=== PATIENT | male | born 1945 | race Caucasian/White ===

== ENCOUNTER → 2016-11-03 | Outpatient (CLI) | payer MEDICARE ==
[~2016-11-03] MED LIST: E-Z-GAS II EFFERVESCENT PACKET (SODIUM BICARB./CITRIC ACID/SIMETHICONE) As Ordered ONE; E-Z-HD 98% w/w 340GM SUSP BTL As Ordered ONE; E-Z-PAQUE 96% w/w SUSP 176GM BTL As Ordered ONE; LASI40TA PO; LOSA100T36 PO; METO50TA2 PO; MULTTAB4 PO; SIMV40TA2 PO; TAMS0.4C PO; TYLE325T5 PO
--- NOTE | 2016-11-03 17:42 | REP ---
UPPER GI, AIR CONTRAST: The procedure was performed under the direct supervision of Dr. Leonardo. The images were reviewed with Dr. Leonardo. The principal consulting engineer film shows no organomegaly or pathological masses. The intestinal gas pattern is nonspecific. Liquid barium and gas-producing granules were given in the erect position as well as liquid barium in the prone oblique position in order to perform a double contrast upper GI examination. The oral and pharyngeal stages of deglutition are unremarkable. During esophageal transport, there are tertiary waves demonstrated. There is no esophagitis, stricture or mucosal ring. There is a fixed hiatal hernia present. There is gastroesophageal reflux demonstrated to above the level of the zhang. Within the fundus of the stomach there is an irregular ulcer. This may represent an ulcerated mass. Recommend endoscopy for further evaluation. The remainder of the stomach is unremarkable. The duodenal leach are normally outlined. The mucosal folds are smooth and regular. There is no duodenitis, pancreatitis, peptic ulcer disease or neoplasm. There are multiple diverticula seen in the duodenum and jejunum. IMPRESSION: 1. In the fundus of the stomach, there is an irregular ulcer which may represent an ulcerated mass. Recommend endoscopy for further evaluation. 2. Tertiary waves. 3. There is a fixed hiatal hernia present. There is gastroesophageal reflux demonstrated to above the level of the zhang. 4. There are multiple diverticula seen in the duodenum and jejunum. 3 minutes and 5 seconds of fluoroscopy time was utilized for this procedure. Reviewed by SOILA Contreras 11/04/2016 05:15 PEdited and Signed by Ulisses Leonardo MD 11/04/2016 05:21 P
== END ==
LOC: M RAD 08:47
PROVIDERS: ATTEND Family Medicine
DX: K92.1 Melena (principal); K25.9 Gastric ulcer, unspecified as acute or chronic, without hemorrhage or perforation; K44.9 Diaphragmatic hernia without obstruction or gangrene; K57.30 Diverticulosis of large intestine without perforation or abscess without bleeding

== ENCOUNTER → 2017-01-12 | Outpatient (CLI) | payer MEDICARE ==
[~2017-01-12] MED LIST changes: -E-Z-GAS II EFFERVESCENT PACKET (SODIUM BICARB./CITRIC ACID/SIMETHICONE) As Ordered ONE; -E-Z-HD 98% w/w 340GM SUSP BTL As Ordered ONE; -E-Z-PAQUE 96% w/w SUSP 176GM BTL As Ordered ONE; +FLOM5CAP PO; +GLYB25TA PO; +LOSA50TA20 PO; +METO-346 PO; +METO50TA7 PO; +OMEP20CA3 PO; +TYLE500T78 PO
[2017-01-12 14:56] LABS: BASO # 0.1 K/mm3 (0.0-0.2); BASO % 0.9 % (0.0-1.0); EOS # 0.1 K/mm3 (0.0-0.50); EOS % 0.9 % (0.0-3.0); LARGE UNSTAINED CELL # 0.1 K/mm3 (0.0-0.4); LARGE UNSTAINED CELL % 1.1 % (0.0-4.0); LYMPH # 1.7 K/mm3 (1.5-4.5); LYMPH % 15.5 % (24.0-44.0); MEAN CORPUSCULAR HEMOGLOBIN 25.9 pg (27.0-33.0); MEAN CORPUSCULAR VOLUME 80.7 fl (80.0-96.0); MONO % 8.7 % (0.0-5.0); NEUTROPHILS # 8.1 K/mm3 (1.8-7.7); NEUTROPHILS % 72.9 % (36.0-66.0); PLATELET COUNT, AUTOMATED 232 k/mm3 (150-450); WHITE BLOOD COUNT 11.1 K/mm3 (4.0-10.0)
[2017-01-16 11:28] LABS: CARCINOEMBRYONIC ANTIGEN 47.1 NG/ML (<2.5)
== END ==
LOC: M LAB 14:04
PROVIDERS: ATTEND Internal Medicine Gastroenterology
DX: R93.3 Abnormal findings on diagnostic imaging of other parts of digestive tract (principal); R63.4 Abnormal weight loss; K25.9 Gastric ulcer, unspecified as acute or chronic, without hemorrhage or perforation

== ENCOUNTER → 2017-01-14 | Outpatient (CLI) | payer MEDICARE ==
[~2017-01-14] MED LIST changes: +GASTROGRAFIN SOLUTION 30ML (Q9963) As Ordered ONE; +ISOVUE-370 76% 100ML VIAL (Q9967) As Ordered ONE
--- NOTE | 2017-01-14 12:17 | REP ---
Clinical: Gastric mass. Technique: Axial contrast enhanced images from the lung bases to the pubic symphysis using oral and 100 ml Isovue 370 intravenous contrast material with precontrast and delayed images of the abdomen as well as coronal and sagittal re-formations. Comparison: 06/22/2015. Findings: Lung bases demonstrate chronic interstitial changes with superimposed basilar atelectasis (right greater than left). Visualized heart and pericardium remains stable. A [id number] paraesophageal gastric hiatal hernia is identified. No obvious gastric mass lesion is appreciated by current CT evaluation although the stomach is partially collapsed and under distended thereby incompletely evaluated. Lymph nodes up to 1.8 cm adjacent to the cardia at the gastroesophageal junction are identified. The small large bowel is grossly unremarkable although moderate fecal impaction at the rectum distended to 6.8 cm is noted. Two vague liver lesions are identified measuring 1.5 cm in the right lobe and 2 cm in the left lobe which cannot be further characterized by current examination. Spleen, pancreas, bilateral adrenal glands are normal. Small amount of layering sludge/gravel in the gallbladder without evidence for acute cholecystitis. Kidneys demonstrate chronic renovascular calcifications as well as possible punctate nonobstructing nephroliths. Pelvis demonstrates collapsed bladder and age appropriate prostate/seminal vesicles. No ascites. No free air. No retroperitoneal adenopathy. Atherosclerotic changes of the aorta and vasculature noted without aneurysm. Musculoskeletal structures demonstrate age-related degenerative change without focal osseous abnormality. Impression: 1. Large paraesophageal gastric hiatal hernia and limited evaluation of the stomach due to under distension by CT. Perigastric lymph nodes as described above measure up to 18 mm. 2. Two subtle vague hypodense liver lesions cannot be further characterized and are not definitively identified on prior noncontrast examinations. 3. Gallbladder sludge/gravel. 4. Nonobstructing renal calculi. 5. Further chronic changes as described above. Signed by Da Benavides MD 01/14/2017 12:09 P
--- NOTE | 2017-01-14 12:25 | REP ---
Clinical: Gastric mass. Technique: Axial contrast enhanced images from the thoracic inlet to the upper abdomen using 100 ml Isovue 370 intravenous contrast material with multiplanar re-formations. Comparison: None. Findings: The thyroid gland is markedly enlarged and heterogeneous with nodules, cysts and calcifications and adjacent separate thyroid tissue versus mass anterior and inferior to the isthmus of the thyroid gland is identified which is similar in appearance of the remainder of the thyroid gland and may represent large nodule. Correlation and follow up is required. Underlying pathology including neoplasm cannot be excluded. Mediastinal and hilar adenopathy is appreciated with lymph nodes measuring up to 17 mm. The lung patel demonstrate diffuse chronic interstitial changes along with few scattered nodules and posterior right upper lobe subpleural nodule measuring 12 mm (image 39). Bibasilar atelectasis (right greater than left) is also appreciated. A [id number]-[id number]-buupx paraesophageal gastric hiatal hernia is identified with some element of irregularity and few adjacent perigastric lymph nodes measuring up to approximately 16 mm. No pleural effusion. No pneumothorax. Surrounding musculoskeletal structures are intact without focal osseous abnormality. Impression: 1. Significantly enlarged heterogeneous thyroid gland with presumed independent thyroid nodule anterior and inferior to the isthmus all of which extends to the thoracic inlet and superior mediastinum surrounding the trachea. Correlation and follow-up is recommended as underlying pathology including neoplasm cannot be excluded. 2. Mediastinal adenopathy with few scattered nodules and solitary larger nodule measuring 12 mm in the subpleural right upper lobe requires further evaluation. As malignancy and metastatic disease are of concern. 3. Irregular appearance to the paraesophageal gastric hiatal hernia along with adjacent perigastric lymph nodes likely reflect the given history of gastric mass and malignancy cannot be excluded. Signed by Da Benavides MD 01/14/2017 12:16 P
== END ==
LOC: M RAD 09:22
PROVIDERS: ATTEND Internal Medicine Gastroenterology
DX: C16.9 Malignant neoplasm of stomach, unspecified (principal); R59.9 Enlarged lymph nodes, unspecified; K44.9 Diaphragmatic hernia without obstruction or gangrene; I10 Essential (primary) hypertension; E11.9 Type 2 diabetes mellitus without complications; E78.00 Pure hypercholesterolemia, unspecified; I50.9 Heart failure, unspecified; K76.89 Other specified diseases of liver; N20.0 Calculus of kidney; K82.9 Disease of gallbladder, unspecified; R91.1 Solitary pulmonary nodule; E07.9 Disorder of thyroid, unspecified; R63.4 Abnormal weight loss; K25.9 Gastric ulcer, unspecified as acute or chronic, without hemorrhage or perforation; F17.210 Nicotine dependence, cigarettes, uncomplicated; Z79.899 Other long term (current) drug therapy
CPT/HCPCS: 36415; 43239; 71260; 74178; 82565; 84520; 88305; Q9963; Q9967

== ENCOUNTER → 2017-01-14 | Outpatient (CLI) | payer MEDICARE ==
[~2017-01-14] VITALS: Ht 175.3 cm; Wt 122.0 kg
[~2017-01-14] MED LIST changes: -GASTROGRAFIN SOLUTION 30ML (Q9963) As Ordered ONE; -ISOVUE-370 76% 100ML VIAL (Q9967) As Ordered ONE; +LIDOCAINE 2% INJ 100 MG/5 ML SDV (FOR ANES.) As Ordered ONE; +NS 1,000 ML IV SCH; +PROPOFOL 200 MG/20 ML VIAL As Ordered ONE
--- NOTE | 2017-01-14 07:59 | ROOR ---
Patient Name: Arpit Caicedo Procedure Date: 01/14/2017 7:27 AM Date of : 1945 Age: 71 Room: [facility] Gender: Male Note Status: Finalized Procedure: Upper Endoscopy + Biopsies Indications: Epigastric abdominal pain, Abnormal UGI series, Weight loss Providers: Rich Sandy MD Referring MD: DIANA SARAH MD Requesting Provider: Medicines: Monitored Anesthesia Care Complications: No immediate complications. Procedure: Pre-Anesthesia Assessment: - The heart rate, respiratory rate, oxygen saturations, blood pressure, adequacy of pulmonary ventilation, and response to care were monitored throughout the procedure. The Endoscope was introduced through the mouth, and advanced to the second part of duodenum. The upper GI endoscopy was accomplished without difficulty. The patient tolerated the procedure well. Findings: The Z-line was regular and was found 40 cm from the incisors. A medium-sized hiatal hernia was present. A large, ulcerated, non-circumferential mass with no bleeding and no stigmata of recent bleeding was found in the cardia and in the gastric fundus. Biopsies were taken with a cold forceps for histology. The exam was otherwise without abnormality. The exam of the duodenum was otherwise normal. Impression: - Z-line regular, 40 cm from the incisors. - Medium-sized hiatal hernia. - Rule out malignancy, gastric tumor in the cardia and in the gastric fundus. Biopsied. - The examination was otherwise normal. Recommendation: - Await pathology results. - Discharge patient to home. - Continue present medications. - Await pathology results. - Telephone GI clinic for pathology results in 1 week. - Check Portal Online for Path [email or web address] - Refer to a surgeon. - Perform CT scan (computed tomography) of the abdomen with contrast. - Perform CT scan (computed tomography) of the chest with contrast. - Perform CT scan (computed tomography) of the pelvis with contrast. - The findings and recommendations were discussed with the patient's family. Rich Sandy MD Rich Sandy MD 01/14/2017 7:58:48 AM This report has been signed electronically. Number of Addenda: 0 Note Initiated On: 01/14/2017 7:27 AM Estimated Blood Loss: Estimated blood loss: none.
[2017-01-14 08:25] VITALS: BP 119/55
[2017-01-14 09:34] LABS: BLOOD UREA NITROGEN 15 MG/DL (7-18); CREATININE FOR GFR 0.76 MG/DL (0.70-1.30); GLOMERULAR FILTRATION RATE > 60.0 (>42)
== END ==
LOC: M OPP 06:57
PROVIDERS: ATTEND Internal Medicine Gastroenterology
DX: C16.9 Malignant neoplasm of stomach, unspecified (principal)

== ENCOUNTER → 2017-01-23 | Outpatient (CLI) | payer MEDICARE ==
[~2017-01-23] MED LIST changes: -LIDOCAINE 2% INJ 100 MG/5 ML SDV (FOR ANES.) As Ordered ONE; -NS 1,000 ML IV SCH; -PROPOFOL 200 MG/20 ML VIAL As Ordered ONE
[2017-01-23 13:01] LABS: INR 1.05
[2017-01-23 13:25] LABS: ALBUMIN 2.8 GM/DL (3.2-5.2); ALBUMIN/GLOBULIN RATIO 0.72 (1.00-1.93); ALKALINE PHOSPHATASE 106 U/L (45-117); ALT/SGPT 16 U/L (12-78); ANION GAP 6 MEQ/L (8-16); AST/SGOT 11 U/L (15-37); BILIRUBIN,TOTAL 0.6 MG/DL (0.2-1.0); BLOOD UREA NITROGEN 14 MG/DL (7-18); CALCIUM LEVEL 9.2 MG/DL (8.8-10.2); CARBON DIOXIDE LEVEL 25 MEQ/L (21-32); CARCINOEMBRYONIC ANTIGEN 67.8 NG/ML (<2.5); CHLORIDE LEVEL 108 MEQ/L (98-107); CREATININE FOR GFR 0.69 MG/DL (0.70-1.30); GLOMERULAR FILTRATION RATE > 60.0 (>42); GLUCOSE, FASTING 134 MG/DL (83-110); SODIUM LEVEL 139 MEQ/L (136-145); TOTAL PROTEIN 6.7 GM/DL (6.4-8.2)
== END ==
LOC: M LAB 11:37
PROVIDERS: ATTEND Surgery
DX: C16.0 Malignant neoplasm of cardia (principal)

== ENCOUNTER → 2017-02-03 | Outpatient (CLI) | payer MEDICARE | LOC: M PLARAD 10:26 | PROVIDERS: ATTEND Surgery | DX: D38.3 Neoplasm of uncertain behavior of mediastinum (principal); D44.0 Neoplasm of uncertain behavior of thyroid gland; C16.0 Malignant neoplasm of cardia | CPT/HCPCS: 78815; A9552 ==

== ENCOUNTER → 2017-02-04 | Outpatient (CLI) | payer MEDICARE ==
--- NOTE | 2017-02-05 08:27 | REP ---
Whole body PET CT scan: Whole body PET CT scan is performed from skull base to the upper thighs. Comparison is the CT of the chest, abdomen and pelvis dated 01/14/2017. Neck and supraclavicular areas: There are no hypermetabolic foci. The thyroid is markedly enlarged as on the comparison CT and there is a mass anterior to the thyroid as on the comparison CT. There are foci of faintly visible non hypermetabolic uptake in the thyroid and the mass anterior to the thyroid. No hypermetabolic foci are identified. Chest: There is a subcarinal soft tissue mass measuring approximately 2.9 cm demonstrating hypermetabolic uptake with a maximal standard uptake value of 11.4. Just inferior to this, anterior to the thoracic aorta slightly to the right of midline is a borderline enlarged lymph node demonstrating hypermetabolic uptake with a maximal standard uptake value of 4.8. Just inferior to this there is a large fixed hiatal hernia. In the superior wall of the hiatal hernia is a large multifocal hypermetabolic focus measuring 6 cm in diameter and demonstrating a standard uptake value maximally of 13.1. Abdomen, pelvis and upper thighs: There is hypermetabolic uptake in an enlarged node interposed between the stomach and liver with a standard uptake value of 11.3. There is hypermetabolic uptake in a elizabeth hepatis borderline enlarged node with a standard uptake maximal value of 7.0. There is a hypermetabolic focus posteriorly in the medial segment of the hepatic left lobe measuring 3.4 cm in diameter with a maximal standard uptake value of 12.5. There is a hypermetabolic focus laterally in the right lobe of the liver with a standard uptake value of 7.9. There are two hypermetabolic foci inferiorly in the right lobe of the liver adjacent to one another with maximal standard uptake value of 7.7. There is a small hypermetabolic focus posterior laterally in the right lobe of the liver with a standard uptake value of 5.5. There is a small hypermetabolic focus posteriorly in the right lobe of the liver inferiorly with a standard uptake value of 4.6. There is a hypermetabolic focus interposed between the portal vein and abdominal vena cava, likely a noted, with a maximal standard uptake value of 11.3. There are is a hypermetabolic focus in the mid ascending colon with a standard uptake value of 22.5. There is a second hypermetabolic focus in the ascending colon at the hepatic flexure with a standard uptake value of 7.6. There is a hypermetabolic focus in the wall of a small bowel loop in the mid pelvis with a standard uptake value of 4.3. There is a hypermetabolic focus extending posteriorly from the inferior wall of the bladder into the rectosigmoid colon wall with a standard uptake value of 12.0. Just inferior to this there is hypermetabolic uptake in the anus with a standard uptake value of 6.2. Impression: There are no hypermetabolic foci in the neck versus clavicular areas. The thyroid is enlarged. There is a mass anterior to the thyroid. These structures demonstrate non hypermetabolic uptake. There is hypermetabolic uptake in the wall of the fixed hiatal hernia. Just superior to the hiatal hernia. There is a mediastinal subcarinal soft tissue mass demonstrating hypermetabolic uptake. And a mediastinal node anterior to the aorta demonstrating hypermetabolic uptake. There are multiple hepatic foci compatible with hepatic metastases. There is uptake in several mesenteric nodes. There are multiple foci in the colon as described. There is a focus in a single small bowel loop in the pelvis. The study is performed with 10 mCi of F 18 FDG. Signed by Ulisses Enriquez MD 02/05/2017 08:19 A
== END ==
LOC: M PLARAD 11:22
PROVIDERS: ATTEND Surgery
DX: C16.9 Malignant neoplasm of stomach, unspecified (principal)
CPT/HCPCS: 78815; A9552

== ENCOUNTER → 2017-02-16 | Outpatient (REF) | payer MEDICARE ==
[2017-02-16 17:28] LABS: INR 1.06
[2017-02-16 19:42] LABS: THYROXINE (T4) 9.1 UG/DL (4.5-12.0)
[2017-02-17 09:12] LABS: CARCINOEMBRYONIC ANTIGEN 183.2 NG/ML (<2.5)
== END ==
LOC: M LAB REF 16:48
PROVIDERS: ATTEND Internal Medicine Medical Oncology
DX: C77.1 Secondary and unspecified malignant neoplasm of intrathoracic lymph nodes (principal); C78.7 Secondary malignant neoplasm of liver and intrahepatic bile duct; C16.0 Malignant neoplasm of cardia; Z79.899 Other long term (current) drug therapy

== ENCOUNTER → 2017-02-20 | Outpatient (CLI) | payer MEDICARE ==
--- NOTE | 2017-02-20 11:03 | REP ---
THYROID ULTRASOUND: Real-time sonographic evaluation of the thyroid performed. Both lobes are significantly enlarged and diffusely heterogeneous in echotexture. Right lobe measures 7.2 x 3.3 x 3.8 cm and left lobe 7.1 x 2.5 x 3.2 cm. No discrete cystic or solid nodule is seen bilaterally. IMPRESSION: Thyromegaly with diffuse heterogeneous echotexture but no focal mass. Signed by Ulisses Leonardo MD 02/20/2017 05:07 P
--- NOTE | 2017-02-20 14:39 | REP ---
WHOLE BODY BONE SCAN: Following the intravenous administration of 22 mCi of technetium-99m MDP, patient's whole body is imaged in the anterior and posterior projections, with additional oblique images of the thoracic and pelvic regions performed as well as lateral views of the calvarium. There is homogenous radiotracer distribution throughout the axial and appendicular skeleton with no compelling scintigraphic evidence of osseous metastases. Renal and bladder activity are seen. IMPRESSION: No compelling scintigraphic evidence of osseous metastasis. Signed by Ulisses Leonardo MD 02/20/2017 05:12 P
== END ==
LOC: M RAD 08:38
PROVIDERS: ATTEND Nurse Practitioner Family
DX: C16.9 Malignant neoplasm of stomach, unspecified (principal); E01.0 Iodine-deficiency related diffuse (endemic) goiter
CPT/HCPCS: 76536; 78306; A9503

== ENCOUNTER → 2017-03-02 | Outpatient (CLI) | payer MEDICARE ==
--- NOTE | 2017-03-02 11:30 | REP ---
Chest two views HISTORY: Stomach neoplasm Comparison: 01/23/2016 An increase in interstitial markings is present in the lungs consistent with chronic interstitial fibrosis. The cardiac silhouette is enlarged. The pulmonary vasculature is normal in appearance. The bony structure is intact. IMPRESSION: 1. Chronic interstitial fibrosis. 2. Cardiomegaly. Signed by Blas Abbasi MD 03/02/2017 11:22 A
== END ==
LOC: M SMT 10:55
PROVIDERS: ATTEND Thoracic Surgery (Cardiothoracic Vascular Surgery)
DX: Z01.811 Encounter for preprocedural respiratory examination (principal); C16.9 Malignant neoplasm of stomach, unspecified; J84.112 Idiopathic pulmonary fibrosis; I51.7 Cardiomegaly

== ENCOUNTER 2017-03-03 09:28 | Day surgery (SDC) | payer MEDICARE ==
[~2017-03-03] VITALS: Ht 167.6 cm; Wt 122.0 kg
[~2017-03-03 09:28] MED LIST changes: +LIDOCAINE 2% INJ 100 MG/5 ML SDV (FOR ANES.) As Ordered ONE; +MIDAZOLAM INJ 2 MG/2 ML VIAL (J2250) As Ordered ONE; +ONDANSETRON 4MG/2ML VIAL (J2405) As Ordered ONE; +PROPOFOL 200 MG/20 ML VIAL As Ordered ONE; -TYLE500T78 PO; +fentaNYL 100 MCG/2 ML INJECTION (J3010) As Ordered ONE
[2017-03-03] MEDS ORDERED: BUPIVACAINE LIPOSOME/PF 1.3% 20 ML VIAL (13.3MG/ML)(EXPAREL) As Ordered ONE (09:55)
[2017-03-03] MEDS ORDERED: HEPARIN SOD (PORCINE) 5000 UNITS/ML VIAL As Ordered ONE (09:55)
[2017-03-03] MEDS ORDERED: LIDOCAINE 1% MDV 20ML VIAL As Ordered ONE (09:55)
[2017-03-03] MEDS ORDERED: TYLE500T78 PO (09:59)
[2017-03-03] MEDS ORDERED: MUPIROCIN 2% OINT 22 GM TUBE TOP ONE (10:00)
[2017-03-03] MEDS ORDERED: LIDOCAINE 2% INJ 100 MG/5 ML SDV (FOR ANES.) As Ordered ONE (14:16)
[2017-03-03] MEDS ORDERED: PROPOFOL 200 MG/20 ML VIAL As Ordered ONE (14:16)
--- NOTE | 2017-03-03 14:53 | REP ---
CHEST X-RAY: TWO VIEWS LIMITED STUDY. HISTORY: Abnormal x-ray. 41 seconds of fluoroscopy time is reported. FINDINGS: A sequence of two last image hold fluoroscopic spot radiographs of the chest document Eazugq-Y-Elqk catheter placement. Signed by Bhavik Ahmadi MD 03/03/2017 03:00 P
[2017-03-03] MEDS ORDERED: FUROSEMIDE 20 MG/2 ML VIAL (J1940) As Ordered ONE (15:06)
[2017-03-03] MEDS ORDERED: LR 1,000 ML IV SCH (15:15)
[2017-03-03] MEDS ORDERED: ACETAMINOPHEN TAB 650MG DOSE (2X325MG) PO PRN (15:15)
[2017-03-03] MEDS ORDERED: PERCOCET 5MG/325MG TAB PO PRN (15:15)
--- NOTE | 2017-03-03 15:38 | REP ---
CHEST, ONE VIEW: HISTORY: Pneumothorax. An increase in interstitial markings is present in the lungs consistent with chronic interstitial fibrosis. Increased density is present in the lower lobes consistent with atelectasis or infiltrates. The cardiac silhouette is enlarged. The pulmonary vasculature is normal in appearance. There is no definite pneumothorax. IMPRESSION: 1. Chronic interstitial fibrosis. 2. Bibasilar atelectasis or infiltrates. 3. Cardiomegaly. Signed by Blas Abbasi MD 03/03/2017 03:42 P
[2017-03-03] MEDS ORDERED: FUROSEMIDE 40 MG/4 ML VIAL (J1940) IV ONE (15:45)
[2017-03-03 17:10] VITALS: BP 119/61
--- NOTE | 2017-03-05 09:09 | RO ---
DATE OF PROCEDURE: 03/03/2017 PREPROCEDURE DIAGNOSIS: Gastric cancer, need for vascular access and chemotherapy. POSTPROCEDURE DIAGNOSIS: same PROCEDURE: Insertion of right subclavian Mmkhhc-S-Lhwd. SURGEON: Dr. Barrett French. GLUE MILL OPERATOR: ANESTHESIA: ESTIMATED BLOOD LOSS: FINDINGS: The left subclavian vein could be found but a wire would not pass. He does have a substernal thyroid and on his chest CT, I thought that his left subclavian vein was not stenosed. Once I could not pass the wire, I went to the right side. The vein was eventually found after multiple sticks on the right side and was eventually wired. The wire would not go down into the vena cava but rather wanted to go through the innominate vein. I settled for that course at that time in the operation. The subclavian fossa had been previously infiltrated with 1% Xylocaine. The proposed port site was infiltrated with Exparel and an incision made. Incision was carried down to the subcutaneous tissue and a subcutaneous pocket was created. Hemostasis was achieved. The wire tract was incised and dilated. A tunnel was created between the port site and the wire site and the catheter. A peel away introducer was then placed and followed with fluoroscopy. The introducer was removed and the catheter was placed with low numbers down. Eventually I had to place it over the guidewire by cutting it a bit shorter than usual at this point in the procedure. It threaded over the guidewire and ran and upon removal of the guidewire, it floated down into the SVC. The peel away introducer was removed through the tunnel which had already been created through which the catheter was pulled after attaching it to the tunneler. He was then properly positioned under fluoroscopic control. The catheter was cut to an appropriate length. Collar was placed and the port was connected to the catheter. Port was secured to the chest wall with two #2-0 silk sutures. After final positioning and making sure that all contours were smooth, the subcutaneous tissue was closed with a running #3-0 locking suture, the skin was closed with running #4-0 Monocryl subcuticular suture. Patient tolerated the procedure well and left the operating room in satisfactory condition. A chest x-ray will be taken in the recovery room. SUSHANT
== END 2017-03-03 17:15 | disposition home or self-care (01) ==
LOC: M SDC 09:28
PROVIDERS: ATTEND Thoracic Surgery (Cardiothoracic Vascular Surgery)
DX: C16.9 Malignant neoplasm of stomach, unspecified (principal); G47.33 Obstructive sleep apnea (adult) (pediatric); R06.00 Dyspnea, unspecified; F17.218 Nicotine dependence, cigarettes, with other nicotine-induced disorders; E04.9 Nontoxic goiter, unspecified; E11.9 Type 2 diabetes mellitus without complications; I10 Essential (primary) hypertension; E78.00 Pure hypercholesterolemia, unspecified; K21.9 Gastro-esophageal reflux disease without esophagitis; R29.898 Other symptoms and signs involving the musculoskeletal system; Z79.899 Other long term (current) drug therapy; Z96.1 Presence of intraocular lens
CPT/HCPCS: 36561; 71010; 76000; C1788; J0690; J1940; J2250; J3010

== ENCOUNTER → 2017-03-09 | Outpatient (REF) | payer MEDICARE ==
[~2017-03-09] MED LIST changes: -LIDOCAINE 2% INJ 100 MG/5 ML SDV (FOR ANES.) As Ordered ONE; -MIDAZOLAM INJ 2 MG/2 ML VIAL (J2250) As Ordered ONE; -ONDANSETRON 4MG/2ML VIAL (J2405) As Ordered ONE; -PROPOFOL 200 MG/20 ML VIAL As Ordered ONE; +TYLE500T78 PO; -fentaNYL 100 MCG/2 ML INJECTION (J3010) As Ordered ONE
[2017-03-10 14:30] LABS: CARCINOEMBRYONIC ANTIGEN 330.9 NG/ML (<2.5)
== END ==
LOC: M LAB REF 14:05
PROVIDERS: ATTEND Internal Medicine Medical Oncology
DX: C16.0 Malignant neoplasm of cardia (principal)

== ENCOUNTER → 2017-03-12 | Outpatient (CLI) | payer MEDICARE ==
--- NOTE | 2017-03-12 10:14 | REP ---
Chest x-ray: Two views. History: Malignant neoplasm. Comparison study: March 03, 2017. Findings: A right-sided Ubwzje-Y-Pwkp catheter is installed with its tip in the expected location of the superior vena cava. Cardiomegaly is observed. There is evidence of a hiatal hernia. There is diffuse interstitial lung disease again noted. Mediastinal widening due to thyroid goiter is again seen. There is no evidence of pneumothorax. Impression: Asspum-T-Pxhq catheter installed on the right. Diffuse interstitial lung disease. Stable mediastinal widening. Hiatal hernia. Signed by Bhavik Ahmadi MD 03/12/2017 02:35 P
== END ==
LOC: M SMT 08:41
PROVIDERS: ATTEND Thoracic Surgery (Cardiothoracic Vascular Surgery)
DX: C16.9 Malignant neoplasm of stomach, unspecified (principal)

== ENCOUNTER → 2017-04-06 | Outpatient (REF) | payer MEDICARE | LOC: M LAB REF 12:38 | PROVIDERS: ATTEND Internal Medicine Medical Oncology | DX: C16.0 Malignant neoplasm of cardia (principal) ==

== ENCOUNTER → 2017-04-10 | Outpatient (CLI) | payer MEDICARE ==
[~2017-04-10] MED LIST changes: +BOOSLIQ PO; +DOCU100C16 PO; +GASTROGRAFIN SOLUTION 30ML (Q9963) As Ordered ONE; +ISOVUE-370 76% 100ML VIAL (Q9967) As Ordered ONE; +METO1TAB87 PO; +PROC10TA PO; +SENN1TAB10 PO; +VITMTA PO; +ZOFR8TAB PO
--- NOTE | 2017-04-10 16:18 | REP ---
CT of the abdomen pelvis without and with IV contrast: Studies correlate with the recent whole body PET scan dated 02/04/[address] scan of 01/14/2017. On the comparison PET scan. There are two hypermetabolic foci in the ascending colon. There is no evidence of colonic obstruction on the CT today, in the ascending colon. No colonic masses are identified by CT today, however, CT is somewhat insensitive. There is no bowel distension or obstruction otherwise. The patient has a known hypermetabolic mass in the hiatal hernia portion of the stomach that is better appreciated on the comparison PET scan and appears to be at the portion of the stomach that traverses the diaphragm. No definite mass is identified in this location on the CT scan today, the PET scan being more sensitive. Multiple hepatic metastases were identified on the comparison PET scan. There are two low density lesion is faintly visible on the CT scan today, one in the left lobe and one peripherally in the right lobe. These correspond foci of hypermetabolic uptake on the PET scan. There are several other hepatic metastases on the PET scan , not visible by CT. On the PET scan there were hypermetabolic nodes in the elizabeth hepatis interposed between the vena cava and aorta. These are faintly visible on the CT scan today. There are small gallbladder calculi layering along the dependent wall of the gallbladder versus porcelain gallbladder. There is a small fat-containing ventral hernia, unchanged from the comparison CT and from the PET scan. The pancreas and spleen are unremarkable. Adrenals and kidneys are unremarkable. Abdominal aorta are unremarkable. Small large bowel loops are unremarkable. There is no ascites. Pelvis: The pelvic bowel loops are unremarkable. There is no ascites or adenopathy. On the comparison PET scan there is a hypermetabolic focus in the sigmoid colon. No mass or obstruction is identified on the CT today. In the distal ascending colon. There is a focal zone of luminal narrowing and mild wall thickening. This was also present on the PET scan. However, the hypermetabolic uptake in the ascending colon is not in this location. There appears to be more proximal in the descending colon. Impression: No evidence of colonic obstruction or bowel obstruction otherwise. The patient has known multiple note hepatic and abdominal hypermetabolic foci, better appreciated on the PET scan then on the CT study today. There is no ascites. No bowel distension or obstruction. Tiny gallbladder calculi layering along the dependent surface of the gallbladder versus porcelain gallbladder. This is unchanged. Small fat-containing ventral hernia, unchanged. Colonoscopy might be considered for further evaluation of the findings in the ascending colon on the prior PET scan. Signed by Ulisses Enriquez MD 04/10/2017 04:10 P
== END ==
LOC: M RAD 11:17
PROVIDERS: ATTEND Internal Medicine Medical Oncology
DX: K56.60 Unspecified intestinal obstruction (principal); C16.9 Malignant neoplasm of stomach, unspecified
CPT/HCPCS: 74178; Q9963; Q9967

== ENCOUNTER → 2017-05-04 | Outpatient (REF) | payer MEDICARE ==
[~2017-05-04] MED LIST changes: -GASTROGRAFIN SOLUTION 30ML (Q9963) As Ordered ONE; -ISOVUE-370 76% 100ML VIAL (Q9967) As Ordered ONE
== END ==
LOC: M LAB REF 10:26
PROVIDERS: ATTEND Internal Medicine Medical Oncology
DX: C16.0 Malignant neoplasm of cardia (principal)

== ENCOUNTER 2017-05-26 10:35 | Inpatient (IN) | payer MEDICARE ==
[~2017-05-26] VITALS: Ht 172.7 cm; Wt 118.9 kg
[~2017-05-26 10:35] MED LIST changes: -BOOSLIQ PO; -DOCU100C16 PO; -K-TA1TAB PO; -MAGN400C2 PO; -METO1TAB87 PO; -NICO21PAT TD; -PROC10TA PO; -SENN1TAB10 PO; -VITMTA PO; -ZOFR8TAB PO
[2017-05-26 11:05] LABS: BASO % 0.5 % (0.0-1.0); EOS % 0.2 % (0.0-3.0); IMMATURE GRANULOCYTE % 2.2 % (0-0); LYMPH % 16.1 % (24.0-44.0); MEAN CORPUSCULAR HEMOGLOBIN 26.5 pg (27.0-33.0); MEAN CORPUSCULAR HGB CONC 29.8 g/dl (32.0-36.5); MEAN CORPUSCULAR VOLUME 88.9 fl (80.0-96.0); MONO # 0.3 10^3/uL (0.0-0.8); MONO % 5.5 % (0.0-5.0); NEUTROPHILS # 4.5 10^3/uL (1.8-7.7); NEUTROPHILS % 75.5 % (36.0-66.0); PLATELET COUNT, AUTOMATED 183 10^3/uL (150-450); RED CELL DISTRIBUTION WIDTH 21.2 % (11.5-14.5)
[2017-05-26 11:16] LABS: INR 1.15
[2017-05-26 11:26] LABS: ANION GAP 5 MEQ/L (8-16); BLOOD UREA NITROGEN 12 MG/DL (7-18); CARBON DIOXIDE LEVEL 28 MEQ/L (21-32); CHLORIDE LEVEL 108 MEQ/L (98-107); CREATININE FOR GFR 0.72 MG/DL (0.70-1.30); GLOMERULAR FILTRATION RATE > 60.0 (>42); GLUCOSE, FASTING 182 MG/DL (83-110); SODIUM LEVEL 141 MEQ/L (136-145)
[2017-05-26 11:27] LABS: CALCIUM LEVEL 8.8 MG/DL (8.8-10.2)
--- NOTE | 2017-05-26 11:28 | REP ---
Clinical: Cough and dyspnea. Comparison: 03/12/2017. Findings: Diffuse increased interstitial markings with indistinct pulmonary vasculature and bibasilar opacities most consistent with pulmonary vascular congestion and interstitial edema including basilar atelectasis and pleural effusions. Cardiomegaly remains stable. Pxduht-C-[id number] identified with tip in the SVC. Skeletal structures are intact. Impression: Findings most compatible with pulmonary vascular congestion and interstitial edema including bibasilar atelectasis and pleural effusions. Signed by Da Benavides MD 05/26/2017 11:19 A
[2017-05-26 11:38] LABS: ALBUMIN 2.4 GM/DL (3.2-5.2); ALBUMIN/GLOBULIN RATIO 0.44 (1.00-1.93); BILIRUBIN,DIRECT 0.3 MG/DL (0.0-0.2); BILIRUBIN,TOTAL 0.7 MG/DL (0.2-1.0); MAGNESIUM LEVEL 1.9 MG/DL (1.8-2.4); TOTAL PROTEIN 7.8 GM/DL (6.4-8.2)
[2017-05-26] MEDS ORDERED: FUROSEMIDE 20 MG/2 ML VIAL (J1940) IV ONE (11:45)
[2017-05-26] MEDS ORDERED: ZOFR8TAB PO (12:35)
[2017-05-26] MEDS ORDERED: SENN1TAB10 PO (12:35)
[2017-05-26] MEDS ORDERED: TYLE500T78 PO (12:35)
[2017-05-26] MEDS ORDERED: DOCU100C16 PO (12:35)
[2017-05-26] MEDS ORDERED: BOOSLIQ PO (12:35)
[2017-05-26] MEDS ORDERED: METO1TAB87 PO (12:35)
[2017-05-26] MEDS ORDERED: VITMTA PO (12:35)
[2017-05-26] MEDS ORDERED: PROC10TA PO (12:35)
[2017-05-26] MEDS ORDERED: GLUCOSE 4 GM CHEW TABLET PO PRN (13:15)
[2017-05-26] MEDS ORDERED: DEXTROSE 50% 50 ML SYRINGE IV PRN (13:15)
[2017-05-26] MEDS ORDERED: GLUCAGON FOR INJ 1 MG VIAL (J1610) SC PRN (13:15)
[2017-05-26] MEDS ORDERED: PROCHLORPERAZINE 5 MG TAB (S0183) PO PRN (13:15)
[2017-05-26] MEDS ORDERED: ONDANSETRON 4 MG TAB (S0181) PO PRN (13:15)
[2017-05-26] MEDS ORDERED: ISOVUE-370 76% 100ML VIAL (Q9967) As Ordered ONE (13:15)
--- NOTE | 2017-05-26 14:08 | REP ---
Clinical: History of malignancy with shortness of breath. Rule out pulmonary embolus. Technique: Axial contrast enhanced images from the thoracic inlet to the upper abdomen using 100 ml Isovue 370 intravenous contrast material with multiplanar MIP re-formations. Comparison: 01/14/2017. Findings: Satisfactory enhancement of the pulmonary vasculature is achieved and no definite filling defects are identified to suggest pulmonary embolus. The thoracic aorta demonstrates atherosclerotic disease without aneurysm or dissection. Cardiomegaly and atherosclerotic changes to the coronary arteries noted. No pericardial effusion is identified. Pulmonary vascular congestion along with moderate lower lobe consolidations/atelectasis and pleural effusions are identified. A noncalcified nodule along the periphery of the right lower lobe measuring approximately 12 mm is essentially unchanged. Smaller scattered nodules obscured by areas of atelectasis/infiltrate and effusion cannot be excluded. Significant mediastinal and hilar (right greater than left) adenopathy is appreciated which is increased in size and quantity as compared to prior examination. Specifically, the prevascular lymph nodes now measure approximately 14 mm and previously measured 10 mm maximal diameter while the left hilar lymph node currently measures 3.3 cm and previously measured 2.5 cm maximal diameter along with prominent paratracheal lymph nodes. The thyroid gland is diffusely heterogeneous and significantly enlarged with areas of parenchymal calcification and fluid, but appears relatively stable in size and overall appearance. Surrounding musculoskeletal structures demonstrate degenerative changes without focal osseous abnormality. Limited evaluation of the upper abdomen again demonstrates a large paraesophageal gastric hiatal hernia with stable adjacent lymph nodes. Impression: 1. No evidence for pulmonary embolus. 2. Cardiomegaly and evidence for pulmonary vascular congestion. 3. Moderate bilateral lower lobe atelectasis/infiltrates and pleural effusions. 12 mm right lower lobe pulmonary nodule remains stable although smaller nodules obscured by acute infiltrates and effusions cannot be excluded. 4. Mildly increased mediastinal and hilar adenopathy. 5. Enlarged heterogeneous multinodular goiter similar to prior examination. 6. Large paraesophageal gastric hiatal hernia similar to prior examination. Signed by Da Benavides MD 05/26/2017 02:00 P
--- NOTE | 2017-05-26 14:15 | HPE ---
DATE OF ADMISSION: 05/26/2017 PRIMARY CARE PROVIDER: Dr. Martinez CHIEF MEDICAL PHYSICIST: Dr. Ordoñez WEIGHT LOSS CONSULTANT: Dr. Diamond ONCOLOGIST: Dr. Reanna Kowalski HOTEL SERVICE SUPERVISOR: Dr. Sandy CHIEF COMPLAINT: Shortness of breath, feeling sensation of warmth. HISTORY OF PRESENT ILLNESS: This is a 71-year-old male patient with underlying history of stage IV gastric cancer, HER2 positive adenocarcinoma with multifocal liver, mediastinum and soft tissue abdominal metastases diagnosed in January 2017, currently on FOLFOX and trastuzumab treatment, and also with underlying medical history of congestive heart failure (CHF), atrial fibrillation, obstructive sleep apnea, umbilical hernia, hypertension, benign prostatic hypertrophy (BPH), nephrolithiasis, gastroesophageal reflux disease (GERD), type 2 diabetes, dyslipidemia. The patient was underlying chemotherapy and reported feeling a sensation of warmth with worsening shortness of breath. The patient reported having dyspnea on exertion that is progressively worsening over the past week with lower extremity edema and also one week of progressively worsening nonproductive cough. Denies any chest pain, pressure or discomfort. The patient was supposed to take Lasix every other day but has not been compliant with medication. Reported bilateral lower extremity edema and reported having intermittent diarrhea about one week ago. Otherwise, no sick contacts. No recent travel. Denies any chest pain, pressure or discomfort, or abdominal pain. Continues to smoke. ALLERGIES: No known drug allergies. PAST MEDICAL HISTORY: 1. Stage IV gastric cancer, HER2 positive adenocarcinoma, multifocal metastases to liver and mediastinum, soft tissue abdominal metastases as well. 2. Obstructive sleep apnea on CPAP at home, not on oxygen. Baseline ambulatory. 3. Umbilical hernia. 4. Congestive heart failure (CHF). 5. Hypertension. 6. Nephrolithiasis. 7. Benign prostatic hypertrophy (BPH). 8. Gastroesophageal reflux disease (GERD). 9. Type 2 diabetes. 10. Dyslipidemia. 11. Atrial fibrillation. PAST SURGICAL HISTORY: 1. LASIK surgery. 2. Circumcision. 3. Chemotherapy port placement by Dr. French. 4. Hemorrhoidectomy. 5. Hernia repair. FAMILY HISTORY: Father with stroke. Mother with throat cancer. SOCIAL HISTORY: The patient reports drinking alcohol once a month. Smoking 1.5 packs per day for the past 50 years. Agreeable to nicotine patch. Lives at home. Baseline ambulatory. REVIEW OF SYSTEMS: Reports dyspnea on exertion, cough, lower extremity edema, feeling sensation of warmth, coughing, diarrhea one week. All other review of systems negative. HOME MEDICATIONS: - acetaminophen 500 mg by mouth at night - Colace 100 mg by mouth twice a day - Lasix 40 mg by mouth every other day - glyburide 2.5 mg by mouth daily - losartan 50 mg by mouth at night - metoprolol 25 mg by mouth twice a day - multivitamin one tablet by mouth daily - omeprazole 20 mg by mouth twice a day - Zofran 8 mg by mouth every 6 hours as needed - prochlorperazine 10 mg by mouth three times a day as needed - senna 8.6 mg by mouth twice a day - Zocor 40 mg by mouth at night - Flomax 0.4 mg by mouth daily PHYSICAL EXAMINATION: VITAL SIGNS: Temperature 96.4, pulse 100, respirations 20, blood pressure 110/54, pulse oximetry 93% on 3 liters nasal cannula. GENERAL: The patient is morbidly obese, in no acute distress. HEENT: Normocephalic, atraumatic. PULMONARY: Diminished breath sounds bilaterally. CARDIAC: Irregularly irregular. S1, S2. 2/6 systolic murmur. ABDOMEN: Soft, obese. Positive bowel sounds. EXTREMITIES: 2+ bilateral lower extremity edema. EKG shows atrial fibrillation, left anterior fascicular block. No ST segment changes. Recent echo in February 2017 showed ejection fraction of 70% with left atrial dilation, moderate aortic stenosis, moderate dilated right ventricle, as per Dr. Ordoñez. LABORATORY DATA: WBC 6, hemoglobin and hematocrit 10.5/35.5, platelets 185. Chemistry: Sodium 141, potassium 4, chloride 108, bicarbonate 28, BUN 12, creatinine 0.7. Cardiac enzymes are negative times 1. Pro BNP 887. Chest x-ray shows pulmonary vascular congestion. ASSESSMENT AND PLAN: This is a 71-year-old male patient with underlying medical history of stage IV HER2 positive gastric adenocarcinoma with multiple metastases to the liver, mediastinum, abdominal soft tissue metastases diagnosed January 2017, received FOLFOX and trastuzumab by Dr. Reanna Kowalski, also with obstructive sleep apnea, history of umbilical hernia, congestive heart failure (CHF), atrial fibrillation , hypertension, nephrolithiasis, benign prostatic hypertrophy (BPH), gastroesophageal reflux disease (GERD), type 2 diabetes, dyslipidemia, who presented to the hospital with shortness of breath during chemotherapy, progressively worsening shortness of breath, especially during chemotherapy. 1. Dyspnea with acute hypoxic respiratory failure, possible etiology includes acute congestive heart failure (CHF) with diastolic dysfunction versus pulmonary artery hypertension versus pericardial effusion secondary to underlying malignancy versus chemotherapy induced cardiomyopathy. Case discussed with Dr. Ordoñez. We will get echocardiogram and diuresis. Strict input and output, daily weight. Case discussed with Dr. Reanna Kowalski, who is also consulted and will be evaluating the patient from an perspective. CT angio has been ordered to rule out pulmonary embolism. Continue diuresis. Oxygen supplementation. Followup infectious workup, including respiratory panel, blood culture, sputum culture. The patient is producing minimal sputum. 2. History of congestive heart failure (CHF). The patient appears to be fluid overloaded with diastolic dysfunction. Ejection fraction of 70% with right heart dilation. We will get echocardiogram. Case discussed with Dr. Ordoñez. Diuresis as ordered. Strict input and output, daily weights, cardiac enzymes, telemetry monitoring. 3. Stage IV gastric cancer, HER2 positive with adenocarcinoma, multiple sites of metastases, including liver, soft tissue of abdomen, mediastinum. CT angio of the chest to rule out malignant pericardial effusion. Echocardiogram has been ordered. Dr. Reanna Kowalski has been consulted. We will continue to monitor oxygen status. Diet as tolerated. 4. Obstructive sleep apnea. ANGELA protocol. Allowed to use home CPAP. 5. Hypertension. Continue blood pressure medications. 6. Atrial fibrillation. The patient is not on anticoagulation. Continue Lopressor. Telemetry monitoring. 7. Benign prostatic hypertrophy (BPH). Continue home medications. 8. GERD. Continue proton pump inhibitor. 9. Type 2 diabetes. Holding oral medications. Insulin as per protocol. 10. Smoking. Counseling provided. Nicotine patch. 11. Dyslipidemia. Continue statin. 12. Deep vein thrombosis (DVT) prophylaxis. Heparin subcutaneously. DISPOSITION PLANNING: Pending further workup and clinical improvement.
[2017-05-26 14:55] VITALS: BP 121/61
[2017-05-26] MEDS: NICOTINE 21MG/24HR 1 EA TRANSDERMAL TD SCH (15:47)
[2017-05-26] MEDS: MULTIVITAMINS/MINERALS THERAP 1 TAB PO SCH (15:47)
[2017-05-26] MEDS: TAMSULOSIN 0.4 MG CAP PO SCH (15:47)
[2017-05-26] MEDS: HEPARIN SOD (PORCINE) 5000 UNITS/ML VIAL SC SCH ×2 (15:47→22:16)
[2017-05-26] MEDS: FUROSEMIDE 40 MG/4 ML VIAL (J1940) IV SCH (17:18)
[2017-05-26] MEDS: HumaLOG INSULIN (NovoLOG) PER UNIT SC SCH ×2 (17:18→22:16)
[2017-05-26 20:00] VITALS: BP 102/59
[2017-05-26] MEDS: DOCUSATE SODIUM 100 MG CAP PO SCH (20:26)
[2017-05-26] MEDS: SENNA 8.6 MG TAB (SENOKOT) PO SCH (20:26)
[2017-05-26] MEDS: ACETAMINOPHEN 500 MG TAB PO SCH (20:27)
[2017-05-26] MEDS: LOSARTAN 50 MG TAB PO SCH ×2 (20:27→20:34)
[2017-05-26] MEDS: OMEPRAZOLE 20 MG CAP PO SCH (20:27)
[2017-05-26] MEDS: SIMVASTATIN 40 MG TAB PO SCH (20:28)
--- NOTE | 2017-05-26 21:01 | ECHO ---
DATE OF PROCEDURE: 05/26/2017 REFERRING PHYSICIAN: Dr. Vonnie Machuca INDICATION: Dyspnea. HEIGHT: 172 cm WEIGHT: 123 kg 2D MEASUREMENTS: Left atrium: 5.2 cm Ventricular septum: 1.17 cm Posterior wall: 1.2 cm Left ventricle diastole: 5.5 cm Aortic root: 3.6 cm LVOT: 2.5 cm Inferior vena cava: 3.1 cm DOPPLER MEASUREMENTS: Aortic valve velocity: 229 cm/s LVOT velocity: 91.2 cm/s LVOT VTI: 16.4 cm Moderate mitral regurgitation. Mild aortic regurgitation. No aortic stenosis. Very mild tricuspid regurgitation. Pulmonary artery systolic pressure: 43 mmHg by pulmonary acceleration time method. Very mild tricuspid regurgitation. DESCRIPTION: This was a technically difficult echocardiogram. Rhythm was atrial fibrillation with controlled ventricular response. This was a 2D, M-mode, color flow Doppler and pulse wave Doppler examination. CONCLUSIONS: 1. Normal left ventricle internal dimensions and wall thickness. Normal regional LV wall motion and wall thickening. 2. Hyperdynamic left ventricular (LV) systolic function. Left ventricular ejection fraction (LVEF) 75% by visual estimate. 3. Suggestive of moderate elevation of pulmonary artery systolic pressure. Normal right ventricle size and systolic function. Very mild tricuspid regurgitation. 4. Inferior vena cava plethora suggestive of elevated central venous pressure in excess of 20 mmHg. 5. Moderate aortic valve sclerosis of a 3-cusp aortic valve. Mild aortic regurgitation. No aortic stenosis. 6. Moderate mitral annular calcification. No mitral stenosis. Moderate mitral regurgitation. 7. Moderate left atrial dilatation. 8. Very small pericardial effusion (0.5 cm over the posterior wall of the left ventricle). No diastolic chamber collapse. Copy To: Dr. Vonnie Kowalski
[2017-05-26] MEDS: METOPROLOL TART 25 MG TABLET PO SCH (22:15)
[2017-05-26 23:59] VITALS: BP 136/58
[2017-05-27] VITALS (24 sets, daily range): BP systolic 107–138; BP diastolic 52–61; O2SAT 89–96
[2017-05-27] MEDS: HEPARIN SOD (PORCINE) 5000 UNITS/ML VIAL SC SCH ×3 (06:16→21:35)
[2017-05-27] MEDS ORDERED: SODIUM CHLORIDE 0.9% INJ 10 ML SYR IV PRN (06:30)
[2017-05-27 06:54] LABS: MEAN CORPUSCULAR HEMOGLOBIN 26.3 pg (27.0-33.0); MEAN CORPUSCULAR VOLUME 87.8 fl (80.0-96.0); PLATELET COUNT, AUTOMATED 156 10^3/uL (150-450); RED CELL DISTRIBUTION WIDTH 21.2 % (11.5-14.5); WHITE BLOOD COUNT 8.4 10^3/uL (4.0-10.0)
[2017-05-27 07:03] LABS: INR 1.1
[2017-05-27 07:13] LABS: ANION GAP 5 MEQ/L (8-16); BLOOD UREA NITROGEN 15 MG/DL (7-18); CALCIUM LEVEL 8.9 MG/DL (8.8-10.2); CARBON DIOXIDE LEVEL 29 MEQ/L (21-32); CHLORIDE LEVEL 108 MEQ/L (98-107); CREATININE FOR GFR 0.78 MG/DL (0.70-1.30); GLOMERULAR FILTRATION RATE > 60.0 (>42); GLUCOSE, FASTING 132 MG/DL (83-110); MAGNESIUM LEVEL 1.9 MG/DL (1.8-2.4); POTASSIUM SERUM 3.8 MEQ/L (3.5-5.1); SODIUM LEVEL 142 MEQ/L (136-145)
[2017-05-27] MEDS: MULTIVITAMINS/MINERALS THERAP 1 TAB PO SCH (08:44)
[2017-05-27] MEDS: SENNA 8.6 MG TAB (SENOKOT) PO SCH ×2 (08:44→21:35)
[2017-05-27] MEDS: OMEPRAZOLE 20 MG CAP PO SCH ×2 (08:44→21:38)
[2017-05-27] MEDS: FUROSEMIDE 40 MG/4 ML VIAL (J1940) IV SCH ×2 (08:45→17:35)
[2017-05-27] MEDS: METOPROLOL TART 25 MG TABLET PO SCH ×2 (08:45→21:37)
[2017-05-27] MEDS: DOCUSATE SODIUM 100 MG CAP PO SCH ×2 (08:45→21:37)
[2017-05-27] MEDS: TAMSULOSIN 0.4 MG CAP PO SCH (08:45)
[2017-05-27] MEDS: HumaLOG INSULIN (NovoLOG) PER UNIT SC SCH ×4 (08:46→21:00)
[2017-05-27] MEDS: NICOTINE 21MG/24HR 1 EA TRANSDERMAL TD SCH (08:56)
[2017-05-27] MEDS ORDERED: SODIUM CHLORIDE 0.9% INJ 10 ML SYR IV SCH (09:00)
--- NOTE | 2017-05-27 19:53 | IPN ---
DATE: 05/27/2017 The patient seen and examined at the bedside. Chart has been reviewed. This morning he states that his shortness of breath has improved. Telemetry is unremarkable. He continues on sinus rhythm. No other issues per nursing overnight. VITAL SIGNS: Temperature 98.6, pulse 96, respiratory 18, blood pressure 138/60, 94% on room air. Input 840, output 2550, negative 1710. Current weight 118.8 kg from previous weight of 119.8 kg. GENERAL: Awake, alert, oriented times three, edentulous. Possible obstructive jugular venous distention. LUNGS: Diminished with bilateral rhonchi. HEART: S1, S2. Irregular, irregular. ABDOMEN: Soft, obese, nontender, nondistended. EXTREMITIES: 2+ pitting edema to the sacrum. EKG: Fifth left anterior vesicular block. No ST/T changes. Echo 2017: Ejection fracture of 75%. Moderate mitral regurgitation, mild aortic regurgitation. No aortic stenosis. Read by Dr. Jah Ordoñez. Very mild tricuspid regurgitation. Very small pericardial effusion. CURRENT ISSUES: 1. Congestive heart failure: Acute decompensated with preserved ejection fraction with preserved systolic function, currently on intravenous Lasix. Fluid restrictions, strict input and output and daily weights. Cardiac rehabilitation as an outpatient. 2. Atrial fibrillation status post ablation, currently on metoprolol 25 mg twice a day. currently on no anticoagulation. 3. Gastric cancer undergoing chemotherapy. Oncologist, Dr. Reanna Kowalski has been consulted. The patient has multifocal liver mediastinal and soft tissue abdominal metastasis diagnosed January 2017 receiving FOLFOX and trastuzumab with HER2 positive adenocarcinoma stage IV gastric cancer, deferred to oncology for further management. 4. Benign prostate hypertrophy. 5. Chronic reflux on proton pump inhibitor (PPI). 6. Type 2 diabetes on a sliding scale, consistent carbohydrates, no added salt diet. 7. Metabolic syndrome with diabetes, hyperlipidemia, and hypertension. Continue on simvastatin. Will start metoprolol for blood pressure, check A1c, insulin sliding scale consistent carbohydrate diet. MTDD
[2017-05-27] MEDS: SIMVASTATIN 40 MG TAB PO SCH (21:35)
[2017-05-27] MEDS: ACETAMINOPHEN 500 MG TAB PO SCH (21:37)
[2017-05-27] MEDS: LOSARTAN 50 MG TAB PO SCH (21:37)
[2017-05-28] VITALS: O2SAT 90
[2017-05-28 04:00] VITALS: O2SAT 90
[2017-05-28 04:31] VITALS: BP 117/59
[2017-05-28 05:32] LABS: MEAN CORPUSCULAR HEMOGLOBIN 26.6 pg (27.0-33.0); MEAN CORPUSCULAR HGB CONC 30.3 g/dl (32.0-36.5); MEAN CORPUSCULAR VOLUME 87.8 fl (80.0-96.0); PLATELET COUNT, AUTOMATED 142 10^3/uL (150-450); RED CELL DISTRIBUTION WIDTH 20.9 % (11.5-14.5); WHITE BLOOD COUNT 8.3 10^3/uL (4.0-10.0)
[2017-05-28 05:43] LABS: INR 1.12
[2017-05-28 05:54] LABS: ANION GAP 6 MEQ/L (8-16); BLOOD UREA NITROGEN 18 MG/DL (7-18); CALCIUM LEVEL 8.9 MG/DL (8.8-10.2); CARBON DIOXIDE LEVEL 30 MEQ/L (21-32); CHLORIDE LEVEL 107 MEQ/L (98-107); CREATININE FOR GFR 0.67 MG/DL (0.70-1.30); GLOMERULAR FILTRATION RATE > 60.0 (>42); GLUCOSE, FASTING 112 MG/DL (83-110); MAGNESIUM LEVEL 1.8 MG/DL (1.8-2.4); POTASSIUM SERUM 3.1 MEQ/L (3.5-5.1); SODIUM LEVEL 143 MEQ/L (136-145)
[2017-05-28] MEDS: HEPARIN SOD (PORCINE) 5000 UNITS/ML VIAL SC SCH (06:11)
[2017-05-28] MEDS ORDERED: MAG SULF 1GM/100ML (MAG RUN) 1 GM in APPROPRIATE DILUENT 1 EA IV ONE (06:45)
--- NOTE | 2017-05-28 07:35 | REP ---
Clinical: CHF. Shortness of breath. Comparison: 05/26/2017. Findings: Findings consistent with moderate to advanced pulmonary vascular congestion and interstitial edema including lower lobe atelectasis and pleural effusions. No obvious pneumothorax. Mediastinum and cardiac silhouette are incompletely evaluated but appear relatively stable with cardiomegaly again noted. [id number] identified with tip in the SVC. Skeletal structures stable. Impression: Moderate to significant pulmonary vascular congestion and interstitial edema including bibasilar atelectasis and pleural effusions. Signed by Da Benavides MD 05/28/2017 07:27 A
[2017-05-28] MEDS: POTASSIUM CHLORIDE 10 MEQ SR TABLET PO SCH ×2 (07:39→09:39)
[2017-05-28] MEDS: HumaLOG INSULIN (NovoLOG) PER UNIT SC SCH (07:40)
[2017-05-28 08:00] VITALS: BP 125/60; O2SAT 90
[2017-05-28] MEDS ORDERED: NICO21PAT TD (08:01)
[2017-05-28] MEDS ORDERED: K-TA1TAB PO (08:03)
[2017-05-28] MEDS ORDERED: MAGN400C2 PO (08:04)
[2017-05-28] MEDS ORDERED: INFLUENZA VIRUS VACCINE HIGH DOSE 0.5 ML SYRINGE (90662) IM ONE (09:00)
[2017-05-28] MEDS: SENNA 8.6 MG TAB (SENOKOT) PO SCH (09:26)
[2017-05-28] MEDS: METOPROLOL TART 25 MG TABLET PO SCH (09:27)
[2017-05-28] MEDS: MULTIVITAMINS/MINERALS THERAP 1 TAB PO SCH (09:27)
[2017-05-28] MEDS: OMEPRAZOLE 20 MG CAP PO SCH (09:27)
[2017-05-28] MEDS: TAMSULOSIN 0.4 MG CAP PO SCH (09:27)
[2017-05-28] MEDS: DOCUSATE SODIUM 100 MG CAP PO SCH (09:27)
[2017-05-28] MEDS: NICOTINE 21MG/24HR 1 EA TRANSDERMAL TD SCH (09:28)
[2017-05-28] MEDS: FUROSEMIDE 40 MG/4 ML VIAL (J1940) IV SCH (09:28)
[2017-05-28 10:00] VITALS: BP 120/62
--- NOTE | 2017-05-28 13:42 | ECGEPIP ---
Stationary ECG Study [facility] - ED Test Date: 2017-05-26 Pat Name: LYNSEY BEATTY Department: Room: - Gender: M [employer] Operator: TANK : 1945 Requested By: Latanya Gaytan Order Number: [id number] Reading MD: Jose Miguel Thornton Measurements Intervals Roy Rate: 104 P: MD: 0 QRS: -27 QRSD: 148 T: 3 QT: 368 QTc: 485 Interpretive Statements ATRIAL FIBRILLATION WITH RAPID VENTRICULAR RESPONSE INDETERMINATE AXIS RIGHT BUNDLE BRANCH BLOCK SIMILAR TO 01/23/16 Electronically Signed On 05-28-2017 13:42:17 EST by Jose Miguel Thornton
--- NOTE | 2017-05-28 16:19 | DSES ---
DATE OF ADMISSION: 05/26/2017 DATE OF DISCHARGE: 05/28/2017 PRIMARY DISCHARGE DIAGNOSES: 1. Congestive heart failure, acute onset, diastolic dysfunction. 2. Atrial fibrillation, status post ablation. 3. History of gastric cancer, stage IV, metastatic lesions to the liver, mediastinal and soft tissue abdominal metastasis, currently undergoing chemotherapy with FOLFOX and trastuzumab. 4. Benign prostatic hypertrophy. 5. Chronic reflux. 6. Type 2 diabetes. 7. Metabolic syndrome. 8. Morbid obesity with body mass index of 39.9. 9. Active tobacco use. 10. Multinodular goiter. 11. Large paraesophageal gastric hiatal hernia. 12. A 12 mm right lower lobe pulmonary nodule. 13. Hypokalemia. DISCHARGE MEDICATIONS: - Lasix 40 mg daily - potassium 40 mEq daily - nicotine patch 21 mg daily - Tylenol 500 at bedtime - Colace 100 twice a day - losartan 50 at bedtime - glyburide 2.5 daily - metoprolol 25 twice a day - multivitamin one tablet daily - Prilosec 20 twice a day - Zofran 8 mg every 8 hours - prochlorperazine 10 mg three times a day as needed - Senokot one tablet twice a day - simvastatin 40 at bedtime - tamsulosin 0.4 daily HOSPITAL COURSE: This is a 71-year-old male who presented to the emergency room with complaints of shortness of breath and feeling sensation of warmth over the past week with lower extremity edema. Patient admits to noncompliance with his Lasix. Oftentimes takes it every other day or every third or fourth day, depending on when he can remember. He states that it is "annoying" to take Lasix , as he has to go to the bathroom multiple times throughout the day. He has been noncompliant with fluid restriction as well as his medication and presented with congestive heart failure (CHF) exacerbation. He is also reporting intermittent diarrhea about a week ago, which subsided prior to admission. Patient was found to be in decompensated diastolic congestive heart failure, started on Lasix 40 mg intravenous (IV) every 6 hours with net-negative balance for the past 2 days, weight of 119.8 kg at admission and 118.9 at discharge. Diuresis with -1.7 and -875 for the past two days with symptomatic relief of his shortness of breath. CT of the chest was negative for pulmonary embolism or pneumonia. Cardiomegaly was present with bilateral lower lobe infiltrates and pleural effusions with a 12 mm right lower lobe pulmonary nodule, which is stable, although smaller nodules can be obscured by infiltrates and effusions. Mildly increased mediastinal hilar lymphadenopathy with enlarged heterogeneous multinodular goiter similar to prior exam and a large paraesophageal gastric hiatal hernia. During the admission patient had symptomatic relief. He was afebrile with normal white count. Microbiology included sputum, which had pending results. Two sets of blood cultures, respiratory panel were negative. Patient is discharged in stable condition to continue with Lasix daily, weigh himself daily, and call his physician for more than 2 pounds weight gain. Cardiac rehabilitation as outpatient. Followup with Dr. Reanna Kowalski as outpatient regarding his chemotherapy. Patient's cardiac markers were negative. Troponin less than 0.02 times two sets. He had episodes of low potassium, which were supplemented, most likely due to Lasix diuresis. His sputum culture was pending. Respiratory panel was negative, and two sets of blood cultures were negative. LABORATORY DATA ON DISCHARGE: White count 8.3, hemoglobin 9.6, hematocrit 31, platelet count 142. Sodium 143, potassium 3.1, chloride 107, bicarbonate 30, BUN 18, creatinine 0.67 , glucose of 112. Microbiology: Sputum culture pending. Respiratory panel May 26 negative. May 26, two sets of blood cultures no growth after 24 hours. IMAGING STUDIES: CT of the chest 05/26/2017: Pulmonary vascular congestion along with moderate lower lobe consolidation, atelectasis, and pleural effusions are identified. Noncalcified nodule along the periphery of the right lower lobe, measuring 12 mm is unchanged. Smaller scattered nodules obscured by areas of atelectasis of infiltrate and effusion cannot be excluded. Significant mediastinal hilar right greater than left adenopathy, which is increased in size and quantity as compared to prior exam. Specifically prevascular lymph node now measuring approximately 14 mm, previously measured 10 mm, while the left hilar lymphadenopathy measured 3.3 cm, previously measured 2.5 cm maximum diameter. Thyroid gland diffusely heterogeneous, significantly enlarged with areas of parenchymal calcification and fluid. Appears to be stable in size and overall appearance. Patient has a large paraesophageal gastric hiatal hernia with stable adjacent lymph node. TIME SPENT ON DISCHARGE: 30 minutes. MTDD
== END 2017-05-28 11:11 | disposition home or self-care (01) | DRG 291 ==
LOC: EDBD 10:35 → M ED 10:35 → M ED INP 13:12 → M PCU 14:57
PROVIDERS: ADMIT Hospitalist; ATTEND General Practice
DX: I11.0 Hypertensive heart disease with heart failure (principal); J96.01 Acute respiratory failure with hypoxia; C79.81 Secondary malignant neoplasm of breast; C78.7 Secondary malignant neoplasm of liver and intrahepatic bile duct; C16.9 Malignant neoplasm of stomach, unspecified; I50.31 Acute diastolic (congestive) heart failure; I48.91 Unspecified atrial fibrillation; G47.33 Obstructive sleep apnea (adult) (pediatric); F17.210 Nicotine dependence, cigarettes, uncomplicated; N40.0 Benign prostatic hyperplasia without lower urinary tract symptoms; K21.9 Gastro-esophageal reflux disease without esophagitis; R91.8 Other nonspecific abnormal finding of lung field; E11.9 Type 2 diabetes mellitus without complications; E78.5 Hyperlipidemia, unspecified; Z92.21 Personal history of antineoplastic chemotherapy; Z99.89 Dependence on other enabling machines and devices; Z95.828 Presence of other vascular implants and grafts; Z79.84 Long term (current) use of oral hypoglycemic drugs; Z79.899 Other long term (current) drug therapy; E66.01 Morbid (severe) obesity due to excess calories; Z68.39 Body mass index [BMI] 39.0-39.9, adult

== ENCOUNTER → 2017-05-26 | Outpatient (REF) | payer MEDICARE ==
[~2017-05-26] MED LIST changes: +K-TA1TAB PO; +MAGN400C2 PO; +NICO21PAT TD
[2017-05-26 16:33] LABS: CARCINOEMBRYONIC ANTIGEN 1.9 NG/ML (<2.5)
== END ==
LOC: M LAB REF 15:36
PROVIDERS: ATTEND Internal Medicine Medical Oncology
DX: C16.0 Malignant neoplasm of cardia (principal)

== ENCOUNTER → 2017-06-11 | Outpatient (CLI) | payer MEDICARE ==
[~2017-06-11] MED LIST changes: +BOOSLIQ PO; +DOCU100C16 PO; +GASTROGRAFIN SOLUTION 30ML (Q9963) As Ordered ONE; +ISOVUE-370 76% 100ML VIAL (Q9967) As Ordered ONE; +K-TA1TAB PO; +MAGN400C2 PO; +METO1TAB87 PO; +NICO21PAT TD; +PROC10TA PO; +SENN1TAB10 PO; +VITMTA PO; +ZOFR8TAB PO
--- NOTE | 2017-06-11 15:06 | REP ---
Clinical: History of gastric adenocarcinoma. Technique: Axial contrast enhanced images from the lung bases to the pubic symphysis using oral (per protocol) and 100 ml Isovue 370 intravenous contrast material with precontrast and delayed images of the abdomen as well as coronal and sagittal re-formations. Comparison: 04/10/2017. Findings: The fixed paraesophageal gastric hiatal hernia is unchanged in appearance and size. The stomach and duodenum appear grossly normal. Small perigastric and epigastric lymph nodes extending to the level of the elizabeth hepatis measure up to 9 mm short axis diameter and demonstrate overall improvement when compared to 04/10/2017. The liver demonstrates a single hypodensity in the inferior left lobe measuring 14 mm best identified on delayed sequence (image 57) which is similar to finding on prior CT. No further significant hepatic lesions are appreciated. The spleen, pancreas, bilateral adrenal glands and kidneys are relatively normal / stable. Bilateral renovascular calcifications are unchanged and there is no evidence for acute perinephric stranding or hydroureteronephrosis. Cholelithiasis noted without definite acute cholecystitis. The small and large bowel is grossly unremarkable in appearance and no obvious focal enteric mass lesion is appreciated. A small fat containing supraumbilical hernia is identified and unchanged (images 67 - 81). Pelvis demonstrates normal bladder and age appropriate prostate/seminal vesicles. No ascites. No obvious, significant retroperitoneal adenopathy. No free air. Atherosclerotic changes of the aorta and vasculature noted without aneurysm. Musculoskeletal structures demonstrate age-related degenerative changes. The lung bases demonstrate diffuse acute/chronic fibroatelectatic changes along with small right pleural effusion and evidence for mild chronic pulmonary vascular congestion. Small pulmonary nodules in the amongst the chronic changes and mild ground-glass opacities cannot definitively be excluded. Impression: 1. Stable appearance to the hiatal hernia and gastroesophageal region. Lymph nodes in the epigastric region and elizabeth hepatis are considerably decreased in size when compared to prior examination and currently measure up to 9 mm short axis diameter. 2. A single low density lesion in the liver left lobe is again noted and no further hepatic lesions are identified by current examination. 3. No further obvious recurrence or metastatic disease appreciated. No ascites. No new adenopathy or obvious solitary mass lesion. 4. Chronic changes as noted above. Signed by Da Benavides MD 06/11/2017 02:59 P
== END ==
LOC: M RAD 12:20
PROVIDERS: ATTEND Internal Medicine Medical Oncology
DX: C16.0 Malignant neoplasm of cardia (principal)
CPT/HCPCS: 74178; Q9963; Q9967

== ENCOUNTER → 2017-07-07 | Outpatient (REF) | payer MEDICARE ==
[~2017-07-07] MED LIST changes: -GASTROGRAFIN SOLUTION 30ML (Q9963) As Ordered ONE; -ISOVUE-370 76% 100ML VIAL (Q9967) As Ordered ONE
[2017-07-07 13:59] LABS: CARCINOEMBRYONIC ANTIGEN 2.3 NG/ML (<2.5)
== END ==
LOC: M LAB REF 13:13
PROVIDERS: ATTEND Internal Medicine Medical Oncology
DX: Z51.11 Encounter for antineoplastic chemotherapy (principal); C16.0 Malignant neoplasm of cardia; C77.1 Secondary and unspecified malignant neoplasm of intrathoracic lymph nodes; C78.7 Secondary malignant neoplasm of liver and intrahepatic bile duct

== ENCOUNTER → 2017-08-04 | Outpatient (REF) | payer MEDICARE ==
[2017-08-04 14:56] LABS: CA19-9 TUMOR MARKER,CARBOHYDRA 33.5 U/ML (<35.0)
== END ==
LOC: M LAB REF 13:34
DX: C16.9 Malignant neoplasm of stomach, unspecified (principal)
CPT/HCPCS: 82378

== ENCOUNTER → 2017-09-01 | Outpatient (REF) | payer MEDICARE ==
[2017-09-01 14:20] LABS: CARCINOEMBRYONIC ANTIGEN 2.4 NG/ML (<2.5)
== END ==
LOC: M LAB REF 13:27
DX: C16.0 Malignant neoplasm of cardia (principal)
CPT/HCPCS: 82378

== ENCOUNTER → 2017-09-10 | Outpatient (CLI) | payer MEDICARE ==
[~2017-09-10] MED LIST changes: -BOOSLIQ PO; -DOCU100C16 PO; -FLOM5CAP PO; +GASTROGRAFIN SOLUTION 30ML (Q9963) As Ordered; -GLYB25TA PO; +ISOVUE-370 76% 100ML VIAL (Q9967) As Ordered; -K-TA1TAB PO; -LASI40TA PO; -LOSA100T36 PO; -LOSA50TA20 PO; -MAGN400C2 PO; -METO-346 PO; -METO1TAB87 PO; -METO50TA2 PO; -METO50TA7 PO; -MULTTAB4 PO; -NICO21PAT TD; -OMEP20CA3 PO; -PROC10TA PO; -SENN1TAB10 PO; -SIMV40TA2 PO; -TAMS0.4C PO; -TYLE325T5 PO; -TYLE500T78 PO; -VITMTA PO; -ZOFR8TAB PO
== END ==
LOC: M RAD 07:55
DX: C16.9 Malignant neoplasm of stomach, unspecified (principal)
CPT/HCPCS: Q9963

== ENCOUNTER → 2017-09-24 | Outpatient (REF) | payer MEDICARE ==
[2017-09-24 14:25] LABS: CHOLESTEROL LEVEL 69 MG/DL (<200); CHOLESTEROL RISK RATIO 3.285 (<5); HDL CHOLESTEROL 21 MG/DL (>40); LDL CHOLESTEROL 33.2 MG/DL (<100); NON-HDL-C 48 MG/DL; PHOSPHORUS LEVEL 2.9 MG/DL (2.5-4.9); TRIGLYCERIDES LEVEL 74 MG/DL (<150)
== END ==
LOC: M LAB REF 13:39
DX: E78.5 Hyperlipidemia, unspecified (principal)

== ENCOUNTER → 2017-09-24 | Outpatient (REF) | payer MEDICARE ==
[2017-09-25 10:45] LABS: CARCINOEMBRYONIC ANTIGEN 3.7 NG/ML (<2.5)
[2017-09-25 11:18] LABS: CA19-9 TUMOR MARKER,CARBOHYDRA 180.7 U/ML (<35.0)
== END ==
LOC: M LAB REF 13:48
DX: C16.0 Malignant neoplasm of cardia (principal); E78.5 Hyperlipidemia, unspecified
CPT/HCPCS: 82378

== ENCOUNTER → 2017-09-25 | Outpatient (CLI) | payer MEDICARE ==
[~2017-09-25] MED LIST changes: -GASTROGRAFIN SOLUTION 30ML (Q9963) As Ordered
== END ==
LOC: M RAD 17:14
DX: R22.1 Localized swelling, mass and lump, neck (principal); C16.0 Malignant neoplasm of cardia; C77.1 Secondary and unspecified malignant neoplasm of intrathoracic lymph nodes; C78.7 Secondary malignant neoplasm of liver and intrahepatic bile duct
CPT/HCPCS: Q9967

== ENCOUNTER → 2017-10-02 | Outpatient (REF) | payer MEDICARE | LOC: M LAB REF 13:26 | DX: C16.3 Malignant neoplasm of pyloric antrum (principal) | CPT/HCPCS: 88300 ==

== ENCOUNTER → 2017-10-27 | Outpatient (CLI) | payer MEDICARE ==
[~2017-10-27] MED LIST changes: +GASTROGRAFIN SOLUTION 30ML (Q9963) As Ordered
== END ==
LOC: M RAD 14:06
DX: K80.20 Calculus of gallbladder without cholecystitis without obstruction (principal); Z85.028 Personal history of other malignant neoplasm of stomach
CPT/HCPCS: Q9963

== ENCOUNTER → 2017-11-03 | Outpatient (REF) | payer MEDICARE ==
[2017-11-03 11:04] LABS: CARCINOEMBRYONIC ANTIGEN 17.3 NG/ML (<2.5)
[2017-11-03 12:45] LABS: CA19-9 TUMOR MARKER,CARBOHYDRA 1382.5 U/ML (<35.0)
== END ==
LOC: M LAB REF 10:11
DX: C16.0 Malignant neoplasm of cardia (principal); C77.1 Secondary and unspecified malignant neoplasm of intrathoracic lymph nodes; C78.7 Secondary malignant neoplasm of liver and intrahepatic bile duct
CPT/HCPCS: 82378

== ENCOUNTER 2017-11-29 16:38 | Emergency (ER) | payer MEDICARE ==
[2017-11-29 17:21] LABS: BASO % 0.3 % (0.0-1.0); EOS % 0.5 % (0.0-3.0); HEMATOCRIT 41.1 % (42.0-52.0); IMMATURE GRANULOCYTE % 0.3 % (0-3.0); LYMPH # 1.5 10^3/uL (1.5-4.5); LYMPH % 24.8 % (24.0-44.0); MEAN CORPUSCULAR HEMOGLOBIN 27.3 pg (27.0-33.0); MEAN CORPUSCULAR HGB CONC 31.6 g/dl (32.0-36.5); MEAN CORPUSCULAR VOLUME 86.3 fl (80.0-96.0); MONO # 0.6 10^3/uL (0.0-0.8); MONO % 9.9 % (0.0-5.0); NEUTROPHILS # 3.9 10^3/uL (1.8-7.7); NEUTROPHILS % 64.2 % (36.0-66.0); PLATELET COUNT, AUTOMATED 107 10^3/uL (150-450); RED BLOOD COUNT 4.76 10^6/uL (4.30-6.10); RED CELL DISTRIBUTION WIDTH 21.9 % (11.5-14.5)
[2017-11-29 17:25] LABS: APPEARANCE, URINE CLEAR (CLEAR); BACTERIA, URINE AUTO NEGATIVE (NEGATIVE); BILIRUBIN, URINE AUTO NEGATIVE (NEGATIVE); BLOOD, URINE BLOOD 2+ (NEGATIVE); COLOR, URINE YELLOW (YELLOW); GLUCOSE, URINE (UA) AUTO NEGATIVE (NEGATIVE); KETONE, URINE AUTO NEGATIVE (NEGATIVE); LEUKOCYTE ESTERASE, URINE AUTO 1+ (NEGATIVE); MUCUS, URINE SMALL (NEGATIVE); NITRITE, URINE AUTO NEGATIVE (NEGATIVE); PROTEIN, URINE AUTO NEGATIVE (NEGATIVE); RBC, URINE AUTO 25 /HPF (0-3); SPECIFIC GRAVITY URINE AUTO 1.011 (1.002-1.035); SQUAMOUS EPITHELIAL CELL UR AU 1 /HPF (0-6); UROBILINOGEN, URINE AUTO 0.2 mg/dL (0.0-2.0); WBC, URINE AUTO 4 /HPF (0-3)
[2017-11-29 17:33] LABS: ANION GAP 7 MEQ/L (8-16); BLOOD UREA NITROGEN 11 MG/DL (7-18); CALCIUM LEVEL 9.3 MG/DL (8.8-10.2); CARBON DIOXIDE LEVEL 27 MEQ/L (21-32); CHLORIDE LEVEL 109 MEQ/L (98-107); CREATININE FOR GFR 0.77 MG/DL (0.70-1.30); GLOMERULAR FILTRATION RATE > 60.0 (>42); GLUCOSE, FASTING 131 MG/DL (70-100); POTASSIUM SERUM 3.7 MEQ/L (3.5-5.1); SODIUM LEVEL 143 MEQ/L (136-145)
[2017-11-29] MEDS: MORPHINE 2 MG/ML 1ML SYRINGE (J2270) IV (18:26)
== END 2017-11-29 19:08 | disposition home or self-care (01) ==
LOC: M ED 16:38
DX: N20.1 Calculus of ureter (principal); N13.30 Unspecified hydronephrosis; K44.9 Diaphragmatic hernia without obstruction or gangrene; C16.9 Malignant neoplasm of stomach, unspecified; I50.9 Heart failure, unspecified; E11.9 Type 2 diabetes mellitus without complications; E78.5 Hyperlipidemia, unspecified; G47.33 Obstructive sleep apnea (adult) (pediatric); F17.200 Nicotine dependence, unspecified, uncomplicated; Z79.899 Other long term (current) drug therapy; Z98.890 Other specified postprocedural states; Z95.828 Presence of other vascular implants and grafts
CPT/HCPCS: J2270

== ENCOUNTER → 2017-12-29 | Outpatient (REF) | payer MEDICARE ==
[2017-12-29 16:04] LABS: CA19-9 TUMOR MARKER,CARBOHYDRA 801.7 U/ML (<35.0)
== END ==
LOC: M LAB REF 13:07
DX: C16.0 Malignant neoplasm of cardia (principal); C77.1 Secondary and unspecified malignant neoplasm of intrathoracic lymph nodes; C78.7 Secondary malignant neoplasm of liver and intrahepatic bile duct
CPT/HCPCS: 86301

== ENCOUNTER → 2018-01-26 | Outpatient (REF) | payer MEDICARE ==
[2018-01-26 14:22] LABS: MAGNESIUM LEVEL 1.9 MG/DL (1.8-2.4)
== END ==
LOC: M LAB REF 13:53
DX: C16.0 Malignant neoplasm of cardia (principal); C77.1 Secondary and unspecified malignant neoplasm of intrathoracic lymph nodes; C78.7 Secondary malignant neoplasm of liver and intrahepatic bile duct
CPT/HCPCS: 83735

== ENCOUNTER → 2018-02-09 | Outpatient (REF) | payer MEDICARE ==
[2018-02-09 14:18] LABS: MAGNESIUM LEVEL 1.9 MG/DL (1.8-2.4)
[2018-02-09 18:21] LABS: CA19-9 TUMOR MARKER,CARBOHYDRA 6139.7 U/ML (<35.0)
== END ==
LOC: M LAB REF 13:30
DX: C16.0 Malignant neoplasm of cardia (principal); C77.1 Secondary and unspecified malignant neoplasm of intrathoracic lymph nodes; C78.7 Secondary malignant neoplasm of liver and intrahepatic bile duct
CPT/HCPCS: 83735

== ENCOUNTER → 2018-02-23 | Outpatient (REF) | payer MEDICARE ==
[2018-02-23 13:50] LABS: MAGNESIUM LEVEL 1.8 MG/DL (1.8-2.4)
[2018-02-23 23:31] LABS: CA19-9 TUMOR MARKER,CARBOHYDRA 5825.6 U/ML (<35.0)
== END ==
LOC: M LAB REF 13:29
DX: C16.0 Malignant neoplasm of cardia (principal); C77.1 Secondary and unspecified malignant neoplasm of intrathoracic lymph nodes; C78.7 Secondary malignant neoplasm of liver and intrahepatic bile duct
CPT/HCPCS: 83735

== ENCOUNTER → 2018-02-25 | Outpatient (CLI) | payer MEDICARE | LOC: M RAD 07:53 | DX: C16.9 Malignant neoplasm of stomach, unspecified (principal) | CPT/HCPCS: Q9963 ==

== ENCOUNTER → 2018-04-06 | Outpatient (REF) | payer MEDICARE | LOC: M LAB REF 13:59 | DX: C16.0 Malignant neoplasm of cardia (principal); C77.1 Secondary and unspecified malignant neoplasm of intrathoracic lymph nodes; C78.7 Secondary malignant neoplasm of liver and intrahepatic bile duct | CPT/HCPCS: 86301 ==

== ENCOUNTER → 2018-05-03 | Outpatient (CLI) | payer MEDICARE | LOC: M RAD 10:56 | DX: C16.9 Malignant neoplasm of stomach, unspecified (principal); J90 Pleural effusion, not elsewhere classified; J98.11 Atelectasis; K44.9 Diaphragmatic hernia without obstruction or gangrene; R91.1 Solitary pulmonary nodule; R18.8 Other ascites; E04.2 Nontoxic multinodular goiter; R59.0 Localized enlarged lymph nodes; C78.7 Secondary malignant neoplasm of liver and intrahepatic bile duct | CPT/HCPCS: Q9963 ==

== ENCOUNTER 2018-05-16 19:36 | Emergency (ER) | payer MEDICARE | END 2018-05-16 20:55 | disposition home or self-care (01) | LOC: M ED 19:36 | DX: S00.03XA Contusion of scalp, initial encounter (principal); S22.42XA Multiple fractures of ribs, left side, initial encounter for closed fracture; W01.10XA Fall on same level from slipping, tripping and stumbling with subsequent striking against unspecified object, initial encounter; Y92.098 Other place in other non-institutional residence as the place of occurrence of the external cause; I10 Essential (primary) hypertension; E11.9 Type 2 diabetes mellitus without complications; G47.30 Sleep apnea, unspecified; C16.9 Malignant neoplasm of stomach, unspecified; Z79.899 Other long term (current) drug therapy | CPT/HCPCS: 71101 ==

== ENCOUNTER → 2018-06-11 | Outpatient (CLI) | payer MEDICARE | LOC: M CARPUL 10:20 | DX: I50.30 Unspecified diastolic (congestive) heart failure (principal); R18.8 Other ascites | CPT/HCPCS: 93306 ==

== ENCOUNTER → 2018-08-02 | Outpatient (CLI) | payer MEDICARE ==
[~2018-08-02] MED LIST changes: +BOOSLIQ PO; +DOCU100C16 PO; +FLOM0.4C39 PO; -GASTROGRAFIN SOLUTION 30ML (Q9963) As Ordered; +GLYB25TA PO; -ISOVUE-370 76% 100ML VIAL (Q9967) As Ordered; +K-TA1TAB PO; +LASI40TA PO; +LASI40TA9 PO; +LOSA100T36 PO; +LOSA100T50 PO; +LOSA50TA88 PO; +LOTRCRE TOP; +MAGN400C2 PO; +MEGA625S PO; +METO-346 PO; +METO1TAB87 PO; +METO50TA2 PO; +METO50TA7 PO; +MULTTAB4 PO; +NICO21PAT TD; +OMEP20CA3 PO; +OXYC-517; +PROC10TA4 PO; +SENN1TAB10 PO; +SIMV40TA2 PO; +TAMS0.4C PO; +TYLE325T5 PO; +TYLE500T78 PO; +VITMTA PO; +ZOFR8TAB24 PO
--- NOTE | 2018-08-02 11:16 | REP ---
Chest x-ray: Two views. History: Cough. Gastric cancer. Comparison chest x-ray: May 16, 2018. A right-sided Qmistv-R-Irrb catheter is seen in place with its tip in the expected location of the superior vena cava. Cardiomegaly is observed. There is evidence of a large hiatal hernia. There is blunting of the left lateral pleural angle indicating a small quantity of left pleural fluid. Healing somewhat displaced left posterior seventh and eighth rib fractures are seen. No other significant bony abnormality. The lungs overall are hyperinflated as before. Impression: Hyperinflation. Cardiomegaly. Hiatal hernia. Small left pleural effusion. Ttbyix-F-Pczk catheter. No focal infiltrate. Electronically Signed by Bhavik Ahmadi MD 08/02/2018 01:18 P
== END ==
LOC: M RAD 09:31
PROVIDERS: ATTEND Internal Medicine Medical Oncology
DX: R05 Cough (principal)

== ENCOUNTER → 2018-09-20 | Outpatient (CLI) | payer MEDICARE ==
[~2018-09-20] MED LIST changes: +GASTROGRAFIN SOLUTION 30ML (Q9963) As Ordered ONE; +ISOVUE-370 76% 100ML VIAL (Q9967) As Ordered ONE
--- NOTE | 2018-09-20 18:22 | REP ---
CT of the chest with IV contrast: Comparison is 05/03/2018. 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 There are multiple mediastinal lymph nodes as previously. These appear to have increased in size. The largest is the azygos node which today measures 17 mm short axis. This previously measured 9 mm. There is no hilar lymph node enlargement. There is no axillary lymph node enlargement. There is a left pleural effusion that has increased in size. There is a tiny right pleural effusion that appears similar to the prior study. There is an 11 mm pleural-based nodule posterolaterally in the right upper lobe. This is unchanged from the prior study. No other lung masses or nodules are identified. The thoracic aorta is unremarkable. Cardiac size is enlarged, unchanged. There are fractures in the posterior arches of the left seventh, eighth and ninth ribs as an interval change. No associated lytic, blastic or destructive changes are identified. These may be post traumatic. Impression: The left pleural effusion has increased in size. The small right pleural effusion is unchanged. There are multiple mediastinal lymph nodes. These appear to have slightly increased in size. No hilar or axillary lymph node enlargement. Goitrous enlargement of the thyroid, unchanged. 11 mm pleural-based nodule posterolaterally in the right upper lobe, unchanged. Fractures of the left seventh, eighth and ninth ribs posteriorly at as an interval change. Electronically Signed by Ulisses Enriquez MD 09/20/2018 06:13 P
--- NOTE | 2018-09-20 18:29 | REP ---
CT of the abdomen and pelvis without and with IV contrast and with bowel contrast: Comparison is 05/03/2018. There is nominal ascites has significantly increased in volume. There is edema in the subcutaneous fat circumferentially as an interval change compatible with anasarca. There are three hypodense hepatic metastases have all increased in size. Cholelithiasis is again identified, unchanged. The pancreas and spleen are unremarkable. There is a hiatal hernia containing the gastric fundus. This was this is unchanged. The adrenals and kidneys are unremarkable. The abdominal aorta is unremarkable. There is no retroperitoneal adenopathy. The bowel is unremarkable. Pelvis: There is no adenopathy. The bladder is unremarkable. The pelvic bowel loops are unremarkable. Impression: The abdominal ascites has increased in volume. Anasarca. Cholelithiasis. The hepatic metastases have increased in size. Hiatal hernia as described. Electronically Signed by Ulisses Enriquez MD 09/20/2018 06:20 P
== END ==
LOC: M RAD 11:14
PROVIDERS: ATTEND Internal Medicine Medical Oncology
DX: C15.9 Malignant neoplasm of esophagus, unspecified (principal); E04.1 Nontoxic single thyroid nodule; R59.0 Localized enlarged lymph nodes; J90 Pleural effusion, not elsewhere classified; K80.20 Calculus of gallbladder without cholecystitis without obstruction; R18.8 Other ascites; C78.7 Secondary malignant neoplasm of liver and intrahepatic bile duct; K44.9 Diaphragmatic hernia without obstruction or gangrene
CPT/HCPCS: 71260; 74178; Q9963; Q9967

== ENCOUNTER → 2018-11-16 | Outpatient (CLI) | payer MEDICARE ==
[~2018-11-16] MED LIST changes: +ACET-683 PO; +[UNRECOGNIZED DRUG - CODE] XX
--- NOTE | 2018-11-16 18:57 | REP ---
CT abdomen and pelvis with IV and oral contrast: History: Stage IV gastric cancer. Rising CEA 19 - 19. Intravenous contrast dose: 100 ml of intravenous Isovue 370. Comparison CT study September 20, 2018. CT findings: There are small bilateral pleural effusions. A moderate size hiatal hernia is noted. Four-chamber cardiac enlargement is seen. No pericardial effusion is noted. There are several prominent lymph nodes in the epicardial fat which are new findings. There is a large amount of diffuse abdominal ascites. This has increased somewhat when compared with the September 20, 2018 study but is not new. There is diffuse subcutaneous edema in the extra abdominal fat suggesting hypoproteinemia or anasarca. This is unchanged. There are multiple liver mass lesions consistent with metastases. These have shown progression in size. The largest lesion is in the left lobe, measuring 4.6 cm in greatest diameter today, 2.8 cm on September 20, 2018. There are at least two new liver mass lesions. The largest lesion in the right lobe measures 4.7 cm today, previously 3.6 cm. No adrenal mass lesion is seen. Spleen is homogeneous and unremarkable. Small and large intestinal bowel loops are unremarkable. Urinary bladder, seminal vesicles and prostate are intact. Bone window settings show old left-sided rib fractures. No bony destructive lesion is seen. Impression: There has been progression in the liver metastatic disease in the interval since the September 20, 2018 study. There is a large amount of diffuse ascites which has increased somewhat as well. Electronically Signed by Bhavik Ahmadi MD 11/16/2018 10:37 P
--- NOTE | 2018-11-16 18:59 | REP ---
CT chest with IV contrast: History: Stage IV adenocarcinoma of the stomach. Comparison chest CT study: September 20, 2018. CT contrast dose: 100 ml of intravenous Isovue [address] findings: There is an extensive bilateral and superior mediastinal goiter again noted. In addition, however, there is pretracheal and AP window region mediastinal adenopathy. The largest lymph node is a pretracheal lymph node measuring 18.4 mm in short axis dimension, previously 17.4 mm. This is essentially unchanged. There are small bilateral pleural effusions. This has increased on the right and is somewhat smaller on the left compared with September 20, 2018. There are some new suspicious lymph nodes in the epicardial fat to the right of midline just anterior to the right atrium. The largest of these measures 21 mm. This is suspicious for progression. No other new adenopathy is appreciated. On lung window settings, there are multiple new bilateral pulmonary nodules consistent with metastatic disease. The largest of these is a pleural-based nodule anteriorly in the right upper lobe measuring 14 mm in greatest diameter. No bony destructive lesion is appreciated. There are old healed rib fractures on the left posterolaterally. Impression: There are multiple new metastatic pulmonary parenchymal nodules. Small bilateral pleural effusions are seen. There is new adenopathy in the epicardial fat to the right of midline. Electronically Signed by Bhavik Ahmadi MD 11/16/2018 10:37 P
== END ==
LOC: M RAD 15:26
PROVIDERS: ATTEND Internal Medicine Medical Oncology
DX: R91.1 Solitary pulmonary nodule (principal); J90 Pleural effusion, not elsewhere classified; C16.9 Malignant neoplasm of stomach, unspecified; R59.9 Enlarged lymph nodes, unspecified
CPT/HCPCS: 36591; 71260; 74177; 80053; 84439; 84443; 85027; J1642; Q9963; Q9967

== ENCOUNTER 2018-11-17 15:03 | Outpatient (RCR) | payer MEDICARE ==
[2018-04-13 09:41] LABS: HEMATOCRIT 36.5 % (37.0-51.0); HEMOGLOBIN 12.2 g/dl (12.0-18.0); LYMPH % 36.3 % (10.0-58.5); MEAN CORPUSCULAR HEMOGLOBIN 30.6 pg (26.0-32.0); MEAN CORPUSCULAR HGB CONC 33.4 g/dl (31.0-36.0); MEAN CORPUSCULAR VOLUME 91.5 fl (80.0-97.0); NEUTROPHILS # 2.6 10^3/uL (2.0-7.8); NEUTROPHILS % 54.4 % (37.0-92.0); RED BLOOD COUNT 3.99 10^6/uL (4.2-6.3); WHITE BLOOD COUNT 4.7 10^3/uL (4.1-10.9)
[2018-04-13 09:58] LABS: ALBUMIN 2.8 GM/DL (3.5-5.2); BLOOD UREA NITROGEN 6 MG/DL (6-20); CALCIUM LEVEL 9.1 MG/DL (8.5-10.2); CARBON DIOXIDE LEVEL 25.7 MEQ/L (23-31); CHLORIDE LEVEL 102 MMOL/L (98-107); CREATININE FOR GFR 0.65 MG/DL (0.90-1.30); GLUCOSE, FASTING 120 MG/DL (70-105); SODIUM LEVEL 133.2 MMOL/L (136-145); TOTAL PROTEIN 5.5 GM/DL (6.4-8.3)
[2018-04-13 09:59] LABS: GLOMERULAR FILTRATION RATE > 60.0 (>42)
[2018-04-13 11:40] VITALS: BP 114/71
[2018-04-20 09:45] VITALS: BP 107/73
[2018-04-20 09:56] LABS: HEMATOCRIT 34.9 % (37.0-51.0); HEMOGLOBIN 11.4 g/dl (12.0-18.0); MEAN CORPUSCULAR HEMOGLOBIN 30.5 pg (26.0-32.0); MEAN CORPUSCULAR HGB CONC 32.7 g/dl (31.0-36.0); MEAN CORPUSCULAR VOLUME 93.2 fl (80.0-97.0); NEUTROPHILS # 2.5 10^3/uL (2.0-7.8); NEUTROPHILS % 53.4 % (37.0-92.0); RED BLOOD COUNT 3.74 10^6/uL (4.2-6.3); WHITE BLOOD COUNT 4.7 10^3/uL (4.1-10.9)
[2018-04-20 10:10] LABS: ALBUMIN 2.8 GM/DL (3.5-5.2); BLOOD UREA NITROGEN 7 MG/DL (6-20); CALCIUM LEVEL 8.7 MG/DL (8.5-10.2); CARBON DIOXIDE LEVEL 25.9 MEQ/L (23-31); CHLORIDE LEVEL 108 MMOL/L (98-107); CREATININE FOR GFR 0.68 MG/DL (0.90-1.30); GLUCOSE, FASTING 100 MG/DL (70-105); SODIUM LEVEL 136.9 MMOL/L (136-145); TOTAL PROTEIN 5.4 GM/DL (6.4-8.3)
[2018-04-20 10:11] LABS: GLOMERULAR FILTRATION RATE > 60.0 (>42)
[2018-04-20 10:12] LABS: POTASSIUM SERUM 2.8 MMOL/L (3.5-5.1)
[2018-04-20] MEDS: SODIUM CHLORIDE 0.9% INJ 10 ML SYR IV PRN (10:30)
[2018-05-14 11:57] VITALS: BP 143/83
--- NOTE | 2018-05-15 14:24 | MEDONC ---
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 Currently on second line treatment after extended major response to first-line palliative HER2 targeting. CURRENT THERAPY: Ramucirumab/paclitaxel q. 28 days, ramucirumab/paclitaxel days 1, 15; paclitaxel days 1, 8, 15, day 1 cycle one 03/09/2018. Treatment held after day 8 cycle two due to thrombocytopenia (day 8 cycle two 04/13/2018) now status post restaging with evidence of significant response in the liver but new ascites of uncertain etiology, decreasing CA19-9 currently 273 down from 800. TREATMENT HISTORY: Please see 04/06/2018 note and 03/01/2018 note. The patient had a prolonged treatment and disease remission on FOLFOX/trastuzumab beginning 02/2017 with several treatment holidays and discontinuation of oxaliplatin as of December 2017. INTERVAL HISTORY Arpit had a CT chest, abdomen and pelvis 05/03/2018. This shows improvement of hepatic metastatic lesions, but new diffuse abdominal ascites. He has no symptoms related to the ascites. In the chest there are new small bilateral effusions, a stable 10.5 mm right upper lobe nodule, mediastinal goiter, mild mediastinal lymphadenopathy regressed versus September 2017 and stable versus February 2018. Arpit asked about the gastric mass, but in fact he has never had a discernible stageable gastric tumor on imaging. The nature of the ascites is unclear. He is not bothered by this clinically, He started Megace and is eating better. He has gained some weight. He has no shortness of breath or orthopnea. He has a history of diastolic hypertension and had at least once CHF exacerbation here during treatment a year ago. It has been a year since his last echocardiogram. We talked about getting another. We talked over whether he wants to continue off treatment for awhile given his appetite is returning and he reports feeling much better. He has minimal tingling and numbness in his extremities. He would like to go back on treatment. His day 15 cycle two was held for mild thrombocytopenia and another 2 weeks elapsed, thus he is one week overdue for starting cycle three. REVIEW OF SYSTEMS: In addition to pertinent positives and negatives above, Arpit denies chest pain. He has occasional constipation, occasional diarrhea, but no prolonged symptoms in either direction. No blood in his stool. No vomiting. His taste is coming back. He has no shortness of breath, abdominal or back pain. Remainder of 12 system review negative. PHYSICAL EXAMINATION: Weight 80 kg, temperature 96.6, blood pressure 143/83. Remainder of physical exam deferred today given recent unremarkable exam and imaging findings. Normal vital signs. IMPRESSION: Arpit Caicedo is a 72-year-old man with a history of diastolic CHF and morbid obesity, diagnosed in 2017 with HER2 positive metastatic gastric cancer involving widespread liver metastases, mediastinal adenopathy. He enjoyed a prolonged response to treatment and clinical partial remission on FOLFOX plus trastuzumab followed by modified FOLFOX without oxaliplatin and trastuzumab. He then had a treatment holiday was some disease progression in the liver, mild, and began paclitaxel/ramucirumab. He has had some slight itching on the ramucirumab, he has new ascites in the abdomen and slight pleural effusions on restaging scans, which however show major response in the liver. His CA19-9 is currently 273, at its peak was it was greater 6000 in January 2018 and down from 800 in February. His ECOG performance status is 1, improving on Megace, eating more, better appetite. He has no exertional symptoms. He is up and about everyday. Not highly energetic but dressed and up well more than half the day and mostly independent of ADLs. PLAN: 1. Resume paclitaxel/ramucirumab next week. CBC will be drawn each treatment day, CMP, CBC, CA19-9 on day one each cycle. 2. Barring next week's treatment, I will see Arpit day 1 each subsequent cycle. 3. We talked over whether he should try something like spironolactone to attempt to control the ascites. He is normally on Lasix but does not take it much. His blood pressure medications have been modified as he has had a major weight loss, his diabetes medications as well. Will keep a close eye on neuropathy symptoms given the paclitaxel and prior oxaliplatin exposure. 4. Continue Megace for appetite management. 5. Echocardiogram. If there is evidence of decreased ejection fraction we will encourage Arpit to resume Lasix treatment; if her echo is again with normal ejection fraction and any symptomatic ascites appears clinically would consider paracentesis for cytology. Overall goals of care currently are palliative for this patient with metastatic gastric cancer. Electronically Signed by Reanna Kowalski MD 05/17/2018 07:56 A DD: Reanna Kowalski MD 05/14/2018 01:29 P DT: rodney 05/15/2018 02:03 P CC: MD Demetrius Condon MD [facility]
[2018-06-08 11:34] VITALS: BP 132/75
[2018-06-08 11:48] LABS: HEMATOCRIT 32.4 % (37.0-51.0); HEMOGLOBIN 10.8 g/dl (12.0-18.0); LYMPH % 33.8 % (10.0-58.5); MEAN CORPUSCULAR HEMOGLOBIN 31.7 pg (26.0-32.0); MEAN CORPUSCULAR HGB CONC 33.3 g/dl (31.0-36.0); MEAN CORPUSCULAR VOLUME 95.1 fl (80.0-97.0); NEUTROPHILS # 3.1 10^3/uL (2.0-7.8); NEUTROPHILS % 56.9 % (37.0-92.0); RED BLOOD COUNT 3.41 10^6/uL (4.2-6.3); WHITE BLOOD COUNT 5.5 10^3/uL (4.1-10.9)
[2018-06-08 12:03] LABS: ALBUMIN 2.6 GM/DL (3.5-5.2); BLOOD UREA NITROGEN 13 MG/DL (6-20); CALCIUM LEVEL 9.4 MG/DL (8.5-10.2); CARBON DIOXIDE LEVEL 27 MEQ/L (23-31); CHLORIDE LEVEL 107 MMOL/L (98-107); CREATININE FOR GFR 0.72 MG/DL (0.90-1.30); GLUCOSE, FASTING 88 MG/DL (70-105); POTASSIUM SERUM 3.4 MMOL/L (3.5-5.1); SODIUM LEVEL 138 MMOL/L (136-145); TOTAL PROTEIN 5.5 GM/DL (6.4-8.3)
[2018-06-08 12:04] LABS: GLOMERULAR FILTRATION RATE > 60.0 (>42)
--- NOTE | 2018-06-08 14:36 | MEDONC ---
MEDICAL ONCOLOGY FOLLOWUP SCHEDULED TREATMENT VISIT DATE OF SERVICE: 06/08/2018 Arpit is seen today by GONSALO Jewell with Dr. Reanna Kowalski the supervising physician. DIAGNOSIS: Stage IV, TXN2-3M1, HER2/desiree positive gastric adenocarcinoma with multifocal liver metastasis, mediastinal soft tissue and abdominal metastasis diagnosis January 2017. On second line treatment after extended major response to first line palliative HER2 targeting. CURRENT THERAPY: Ramucirumab/paclitaxel q. 28 days, ramucirumab/paclitaxel days 1, 15; paclitaxel days 1, 8, 15, day 1 cycle 2 03/09/2018. Treatment held after day 8 cycle 2 due to thrombocytopenia (day 8 cycle 2 04/13/2018). Day 1 cycle 3 has been delayed twice now due to thrombocytopenia on 04/20/2018 and most recently following a fall at home resulting in a contusion to the occipital area of the head and nondisplaced fractures of the posterior lateral left 8th and 9th ribs. Most recent restaging dated 05/03/2018 with evidence of significant response in the liver but new ascites of uncertain etiology, decreasing CA19-9 most recently down to 273 from 800. TREATMENT HISTORY: Please see 04/06 and 03/01/2018 note. The patient had a prolonged treatment and disease remission on FOLFOX/trastuzumab beginning February 2017 with several treatment holidays and discontinuation of oxaliplatin as of December 2017. INTERVAL HISTORY: Arpit presents today for followup blood work and possible resumption of day 1 cycle 3 chemotherapy. As noted above, he sustained a fall at home on 05/16/2018 resulting in a contusion to the occipital area of his head and fractured ribs on the left. Arpit feels that he is overall back to his baseline in regards to these injuries. The only new complaint today is of an approximate 2-week history of progressive lower extremity edema despite 40 mg of Lasix per day. Arpit specifically denies dyspnea or persistent cough. He does have a history of diastolic hypertension and at least one CHF exacerbation with us during treatment approximately a year ago. He has a current echo scheduled for her 06/11/2018 (rescheduled due to the patient's fall). REVIEW OF SYSTEMS: In addition to pertinent positives and negatives above, Arpit denies chest pain, nausea or vomiting, appetite is good with the use of Megace. No diarrhea or constipation or blood in the stool. No new skeletal pain. PHYSICAL EXAMINATION: Weight is 85.7 kg, temperature 97.9, pulse 99, respirations 20, BP 132/75, O2 sat 99% at rest on room air. General exam: Chronically ill-appearing white male who is stable and in no acute distress. Cardiac is S1, S2. Lung sounds are clear. Abdomen: Soft, symmetrical with normal active bowel sounds, without guarding or rebound or obvious hepatosplenomegaly, mass or bruit. Extremities: Positive for 2-3+ pitting edema bilaterally. LABORATORY DATA: WBC 5.5, ANC 3.1, RBC 3.41, hemoglobin and hematocrit 10.8, 32.4, platelets 135. Chemistries are unremarkable. A CA19-9 is pending as of this dictation. IMPRESSION: Arpit is a michele, 72-year-old man with a history of diastolic CHF and a history of morbid obesity, diagnosed in 2017 with HER2/desiree positive metastatic gastric cancer involving widespread liver metastasis, mediastinal adenopathy. He enjoyed a prolonged response to treatment and clinical partial remission on FOLFOX, plus trastuzumab, followed by modified FOLFOX with oxaliplatin and trastuzumab. He then had a treatment holiday with some disease progression in the liver, mild and began paclitaxel/ramucirumab. Unfortunately, he recently fell at home resulting in soft tissue injury to his head and fractured ribs on the left. Side effects from the fall including pain now completely resolved. ECOG performance status is 0-1. Unfortunately, however on today's exam Arpit has 2-3+ pitting edema in his lower extremities bilaterally and has not had a current echocardiogram (tentatively scheduled for 06/11/2018). PLAN: 1. For the patient's bilateral lower extremity edema, he was advised to increase his Lasix to80 mg p.o. daily x3 days. Maintain current dose of potassium supplementation. Contact Dr. Martinez by 06/10/2018 if the lower extremity edema does not resolve. 2. Hold delayed day 1 cycle 3 paclitaxel/ramucirumab today. 3. Obtain a current echo on 06/11/2018. 4. Return in 1 week for repeat blood work, office visit and to possibly resume paclitaxel/ramucirumab day 1 cycle 3. Reviewed by Irma Ge NP 06/08/2018 03:31 P Electronically Signed by Reanna Kowalski MD 06/09/2018 09:02 A DD: Irma Ge NP 06/08/2018 12:50 P DT: deena 06/08/2018 02:03 P CC: MD Demetrius Condon MD [facility]
[2018-06-15 09:54] VITALS: BP 124/71
[2018-06-15 10:08] LABS: HEMOGLOBIN 11.1 g/dl (12.0-18.0); LYMPH % 36.5 % (10.0-58.5); MEAN CORPUSCULAR HEMOGLOBIN 30.7 pg (26.0-32.0); MEAN CORPUSCULAR HGB CONC 31.7 g/dl (31.0-36.0); MEAN CORPUSCULAR VOLUME 96.6 fl (80.0-97.0); NEUTROPHILS # 2.9 10^3/uL (2.0-7.8); NEUTROPHILS % 52.8 % (37.0-92.0); RED BLOOD COUNT 3.62 10^6/uL (4.2-6.3); WHITE BLOOD COUNT 5.5 10^3/uL (4.1-10.9)
[2018-06-15 10:18] LABS: ALBUMIN 2.8 GM/DL (3.5-5.2); BLOOD UREA NITROGEN 20 MG/DL (6-20); CALCIUM LEVEL 9.6 MG/DL (8.5-10.2); CARBON DIOXIDE LEVEL 24 MEQ/L (23-31); CHLORIDE LEVEL 108 MMOL/L (98-107); CREATININE FOR GFR 0.66 MG/DL (0.90-1.30); GLOMERULAR FILTRATION RATE > 60.0 (>42); GLUCOSE, FASTING 94 MG/DL (70-105); POTASSIUM SERUM 3.8 MMOL/L (3.5-5.1); SODIUM LEVEL 137 MMOL/L (136-145); TOTAL PROTEIN 5.7 GM/DL (6.4-8.3)
[2018-06-15 13:45] LABS: APPEARANCE, URINE HAZY (CLEAR); BACTERIA, URINE AUTO NEGATIVE (NEGATIVE); BILIRUBIN, URINE AUTO NEGATIVE (NEGATIVE); BLOOD, URINE BLOOD NEGATIVE (NEGATIVE); COLOR, URINE YELLOW (YELLOW); GLUCOSE, URINE (UA) AUTO NEGATIVE (NEGATIVE); KETONE, URINE AUTO NEGATIVE (NEGATIVE); LEUKOCYTE ESTERASE, URINE AUTO 3+ (NEGATIVE); MUCUS, URINE SMALL (NEGATIVE); NITRITE, URINE AUTO NEGATIVE (NEGATIVE); PROTEIN, URINE AUTO NEGATIVE (NEGATIVE); RBC, URINE AUTO 5 /HPF (0-3); SPECIFIC GRAVITY URINE AUTO 1.025 (1.002-1.035); SQUAMOUS EPITHELIAL CELL UR AU 2 /HPF (0-6); WBC, URINE AUTO 43 /HPF (0-3)
--- NOTE | 2018-06-17 09:55 | MEDONC ---
MEDICAL ONCOLOGY FOLLOWUP/TREATMENT VISIT. DATE OF SERVICE: 06/15/2018 DIAGNOSIS: Stage IV, TXN2-3M1, HER2/new positive gastric adenocarcinoma with multifocal liver metastases, mediastinal soft tissue and abdominal metastases at time of diagnosis January 2017. Currently on second line treatment following extended major response to first-line palliative HER2 targeting chemo antibody therapy. CURRENT THERAPY: Ramucirumab/paclitaxel q. 28 days on the following cycle: - Ramucirumab/paclitaxel days 1, 15 - paclitaxel days 1, 8, 15 - day 1 cycle one 03/09/2018 Complications have included thrombocytopenia requiring hold of treatment. PRIOR THERAPY: FOLFOX/trastuzumab 02/2017 - 06/2017 followed by treatment holiday. FOLFOX/trastuzumab 10/2017 - 02/2018 stopped due to progression Oxaliplatin stopped as of early 2017. INTERVAL HISTORY: Arpit is here accompanied by his daughter who immediately begins texting. She transcribes in her text the entire visit. She declines to record the visit. In the last few visits, Arpit has had trouble with increased pedal edema. He was given Lasix to take for several days which he did which improved the pedal edema. An echocardiogram while abnormal remains stable versus May 2017. Specifically, the echocardiogram by Dr. Morgan reads as follows: Normal sinus rhythm with right bundle branch block, technically challenging study but useful, moderately dilated left atrium, evidence of LV diastolic dysfunction, mild to moderately elevated mean left atrial pressure; mildly dilated right heart chambers, reduced right ventricular free wall motion, moderate pulmonary hypertension, mild IVC dilation with reduced respiratory collapse consistent with elevated CVP; AV sclerosis without functional abnormality; moderate mitral annular calcification, normal appearing tricuspid, borderline concentric left ventricular hypertrophy with preserved systolic function, compared to 05/26/2017. No dramatic change. Reviewing Arpit's labs, it is clear his UA has not been checked recently. His albumin is low and it is possible though he has only had three doses of ramucirumab that he has a component of hypoalbuminemia secondary to ramucirumab which is contributing to his edema. He also complains of an itching rash, is somewhat vague about the onset of this but mentions hives at the end of the visit and points out a spot on his left flank where there is a small raised erythematous non-blanching patch about 1 cm in size. He denies orthopnea, difficulty with breathing, air hunger. He denies new chest pain or palpitations. We talked over goals of therapy. He does have a component of diastolic and right heart failure and on one occasion he became fluid overloaded early on in his treatment. I explained the concept of hypoalbuminemia. He was drinking a protein drink but stopped and prefers to get his protein through peanut butter. I suggested going back to the protein drink. We held day 15 cycle two treatment and today will begin delayed cycle three. It will be day 1 today delayed cycle three treatment with paclitaxel/ramucirumab. Arpit denies any new tingling or numbness in his hands or feet. He has just some light tingling. He does acknowledge a fall at home. We went over the circumstances. His daughter asserts it absolutely had to do with the architecture of the porch. He denies a prodrome of dizziness, faintness, palpitations, chest pain. He denies head trauma or loss of consciousness. He has had no falls since but is using a cane. REVIEW OF SYSTEMS: Pertinent positives and negatives as above. In addition, the patient denies feeling of tongue swelling, throat closing, shortness of breath, cough. PHYSICAL EXAMINATION: Weight 81.8 kg, temperature 98.6, blood pressure 124/71, heart rate 97, respiratory 24, O2 sat 98%. The patient is an overweight older gentleman, short of stature clearly having lost a great deal of weight with redundant skin folds about his neck and arms. Respiratory: Clear lungs to auscultation bilaterally. No audible wheezes or rales. No pretracheal stridor. Cardiac: S1, S2 regular. 2/6 systolic murmur. Abdomen: Soft, nontender, no hepatosplenomegaly. No shifting dullness. Extremities: 1+ pitting at the ankles, right slightly greater than left. LABORATORY DATA: WBC 5.5, hemoglobin 11, hematocrit 35, platelets 144. MCV 96. Electrolytes within normal limits. Creatinine 0.66. Liver functions normal. Albumin 2.8. NOTE: As of October 2017, albumin was normal. Became low as of December 2017 going down to 3 and since April has been in the 2.6 - 2.8 range coinciding with ramucirumab treatment. PLAN: 1. Arpit is very anxious to receive treatment today and I agreed we would start day 1 cycle three. We will also obtain UA and if any proteinuria, would consider holding ramicurumab, continuing the Taxol and monitoring his albumin and also collecting a 24-hour urine for protein. 2. He will return weekly for days 8 and 15 treatment. He has one week off between day 15 and day 1 of the next cycle. He will be seen on day 1 each cycle, CMP, a CBC, CA19-9 each day 1. CBC each week. Current CA19-9 reflects response to therapy at 225 down from 5800 at start of treatment. With most recent restaging scans 05/03/2018 showing stable disease. TIME STATMENT: 30 minutes face to face with the patient more than 50% involved in reviewing current treatment goals, risks and benefits, together discussing symptoms to watch for indicative of allergic reaction versus seasonal dry skin and answering all of the patient's and his daughter's questions. Electronically Signed by Reanna Kowalski MD 06/17/2018 07:02 P DD: Reanna Kowalski MD 06/15/2018 04:38 P DT: tresa 06/17/2018 09:35 A CC: MD Demetrius Dexter MD [facility]
[2018-06-22 10:04] VITALS: BP 108/68
[2018-06-22 10:06] LABS: HEMATOCRIT 34.6 % (37.0-51.0); HEMOGLOBIN 11.2 g/dl (12.0-18.0); LYMPH % 44.2 % (10.0-58.5); MEAN CORPUSCULAR HEMOGLOBIN 30.8 pg (26.0-32.0); MEAN CORPUSCULAR HGB CONC 32.4 g/dl (31.0-36.0); NEUTROPHILS # 2.2 10^3/uL (2.0-7.8); NEUTROPHILS % 48.4 % (37.0-92.0); RED BLOOD COUNT 3.64 10^6/uL (4.2-6.3); WHITE BLOOD COUNT 4.6 10^3/uL (4.1-10.9)
[2018-06-22 10:16] LABS: ALBUMIN 2.9 GM/DL (3.5-5.2); BLOOD UREA NITROGEN 17 MG/DL (6-20); CARBON DIOXIDE LEVEL 26 MEQ/L (23-31); CHLORIDE LEVEL 110 MMOL/L (98-107); CREATININE FOR GFR 0.64 MG/DL (0.90-1.30); GLUCOSE, FASTING 97 MG/DL (70-105); POTASSIUM SERUM 4.1 MMOL/L (3.5-5.1); SODIUM LEVEL 138 MMOL/L (136-145); TOTAL PROTEIN 5.8 GM/DL (6.4-8.3)
[2018-06-22 10:18] LABS: GLOMERULAR FILTRATION RATE > 60.0 (>42)
[2018-06-29 08:55] VITALS: BP 117/70
[2018-06-29 09:31] LABS: HEMATOCRIT 33.3 % (37.0-51.0); LYMPH % 48.7 % (10.0-58.5); MEAN CORPUSCULAR HEMOGLOBIN 31.3 pg (26.0-32.0); MEAN CORPUSCULAR VOLUME 94.7 fl (80.0-97.0); NEUTROPHILS # 1.6 10^3/uL (2.0-7.8); NEUTROPHILS % 42.5 % (37.0-92.0); RED BLOOD COUNT 3.52 10^6/uL (4.2-6.3); WHITE BLOOD COUNT 3.8 10^3/uL (4.1-10.9)
[2018-06-29 09:59] LABS: BLOOD UREA NITROGEN 14 MG/DL (6-20); CALCIUM LEVEL 8.9 MG/DL (8.5-10.2); CARBON DIOXIDE LEVEL 24 MEQ/L (23-31); CHLORIDE LEVEL 111 MMOL/L (98-107); CREATININE FOR GFR 0.67 MG/DL (0.90-1.30); GLUCOSE, FASTING 88 MG/DL (70-105); POTASSIUM SERUM 3.5 MMOL/L (3.5-5.1); SODIUM LEVEL 139 MMOL/L (136-145); TOTAL PROTEIN 5.8 GM/DL (6.4-8.3)
[2018-06-29 10:00] LABS: GLOMERULAR FILTRATION RATE > 60.0 (>42)
[2018-07-14 08:45] VITALS: BP 135/82
[2018-07-14 09:03] LABS: HEMATOCRIT 38.7 % (42.0-52.0); HEMOGLOBIN 12.5 g/dl (13.5-17.5); LYMPH % 22.7 % (24.0-44.0); MEAN CORPUSCULAR HEMOGLOBIN 31.1 pg (27.0-33.0); MEAN CORPUSCULAR HGB CONC 32.3 g/dl (32.0-36.5); MEAN CORPUSCULAR VOLUME 96.2 fl (80.0-96.0); RED BLOOD COUNT 4.02 10^6/uL (4.30-6.10); WHITE BLOOD COUNT 11.3 10^3/uL (4.0-10.0)
[2018-07-14 09:49] LABS: ALBUMIN 2.9 GM/DL (3.5-5.2); BLOOD UREA NITROGEN 11 MG/DL (6-20); CALCIUM LEVEL 9.3 MG/DL (8.5-10.2); CARBON DIOXIDE LEVEL 22 MEQ/L (23-31); CHLORIDE LEVEL 112 MMOL/L (98-107); CREATININE FOR GFR 0.81 MG/DL (0.90-1.30); GLOMERULAR FILTRATION RATE > 60.0 (>42); GLUCOSE, FASTING 124 MG/DL (70-105); POTASSIUM SERUM 3.6 MMOL/L (3.5-5.1); SODIUM LEVEL 141 MMOL/L (136-145)
--- NOTE | 2018-07-15 10:35 | MEDONC ---
OUTPATIENT PROGRESS NOTE: DATE OF SERVICE: 07/14/2018 DATE OF : 1945 AGE: 72. 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 Stage IV, TXN2-3M1. Patient has been on prior treatment palliative with HER2/desiree Herceptin and has had progression of disease and is now on second line therapy with Ramucirumab and Taxol. Patient's original CEA and CA 19-9 were both markedly elevated and actually patient is very well informed through Dr. Kowalski. He recalls his original CA 19-9 was over 116,000 and lately it has come down to 225. But initially after the Herceptin, he said it was even down to 26 and then it started rising again. So we have good markers to correlate with the patient's tumor burden. CURRENT TREATMENT: Patient is on Ramucirumab 8 mg/kg day 1, day 15. Taxol 80 mg/sq m day 1, day 8, day 15. Both drugs are given IV through a mediport in the right upper anterior chest. As needed cytokines are given and patient receives antiemetics before the treatment. PRIOR THERAPY: FOLFOX and Herceptin from February 2017 through June 2017. Then the patient had a 'chemo holiday'. Repeat treatment above October 2017 through February 2018 and switched treatment due to progression of disease. Oxaliplatin was stopped as of early 2017, I believe for neurological issues. INTERVAL HISTORY: Patient says he lives with his daughter and son-in-law. His and he is still sad about that. He has a few issues lately. He says he has fallen recently because one of the steps was very high or he was missing a step on the staircase and he fell. He had a large hematoma on his scalp and he broke a few ribs. He did not take any pain medications. All he took was Tylenol for it. He is getting better and his son-in-law fixed the step finally. Patient also says he has had a rash. The rash is very itchy and it is all over his trunk, extends down into the right groin and thigh and also all the way on his forearms, and his skin is very, very dry. Has always been dry no matter how many lotions he applies. The rash is bothersome. He has Benadryl at home, which he has been taking and it helps but the rash does not go away with the Benadryl. The rash started while he was on off chemo, he said. Then it went away on its own for a month and then came back. He does not know what is causing it. He takes a lot of medicines, mainly stool softeners if needed, Lasix, glyburide, Megace, metoprolol, multivitamins, omeprazole, ondansetron if needed and he says he actually has not taken one Zofran or ondansetron in 1-1/2 years. He has Compazine if needed also. He is on simvastatin and Flomax. The other issue he said was first he was constipated after his last treatment. Then he took one package of MiraLAX and then he had diarrhea. It was not liquid or watery, just semisolid and today he has only gone once. It is not foul-smelling. It is not voluminous. There is no abdominal cramping with it. But he has noticed that his abdomen is a little more distended than usual. He does have a chronic dry cough and he also has chronic swelling of both legs for which he takes Lasix. But the right leg seems to have been swollen more than the left leg. He has never fractured it or sprained it or had a blood clot in it. Those are the major complaints. Patient denies appetite loss or weight loss. He had one episode of nausea, lasted a few hours. Did not need to take any medicine for it. There was no vomiting. No headache. No vision change with it. The mediport is not causing him any issues. No fevers. No chills. All other systems reviewed are stable and patient requests a refill on his Flomax. Patient says he is aware that his proteins are low. He has all cans and boxes of Boost and Ensure at home. He just does not feel like taking them. That could be part of the depression with his 's passing. Some people grieve for a long time. Systems review as above. CONCURRENT DIAGNOSES: Obstructive sleep apnea (ANGELA) on CPAP not oxygen. Abdominal wall hernia. History of chronic congestive heart failure. Hypertension. Diabetes type 2. Dyslipidemia. Atrial fibrillation historically. Gastroesophageal reflux disease (GERD). Benign prostatic hypertrophy (BPH). Nephrolithiasis. Patient is status post LASIK surgery, circumcision, mediport placement by Dr. French, hemorrhoidectomy, and hernia repair. FAMILY HISTORY: Mother had throat or head and neck cancer and father had a stroke. SOCIAL HISTORY: Patient is . Used to smoke a 1-1/2 packs a day for 50-some years. He has never been an alcoholic and he has a cane, single prong, which he does not use. He has a handicap parking permit also. He has dentures in place, but he has never used them. Never agreed with them. So his upper jaw has no teeth and on the bottom, he just has a few four or five front lower teeth. On examination, elderly gentleman, very pleasant. Awake, alert, oriented in no acute distress. Vital signs are stable. Patient has minimal tachycardia at 99 heart rate and respiratory rate was initially 28 but came down to 20 per minute. Patient is afebrile. Blood pressure is 135/82. Pulse ox 93% on room air. Patient's conjunctiva are pink. Sclerae do not appear icteric. Patient has bilateral significant ectropion and also it looks like there has been some replacement. I can see only in the right eye, not in the left side as much for some reason. Buccal mucosa: As mentioned above, patient has no teeth on the upper jaw and just a few front lower teeth on the lower jaw. Tongue is normal. No adenopathy neck. Patient has a small lipoma the size of a [place]umqu[place] on the right neck anteriorly. He has had it for 20 years. No jugular venous distention clinically. Lungs have poor air entry uniformly. Cardiovascular system without murmurs, gallops or rubs. Today, the rhythm appeared regular. The chart says patient has atrial fibrillation. He is not on any anticoagulation. Abdomen is distended but it is quite tympanic mainly in the upper abdomen. Looks more like a hernia and gaseous distention rather than ascites. There is no guarding or rigidity. No tenderness anywhere. Hepatomegaly is difficult to evaluate because of the size of the abdomen, really and patient not being able to relax. Patient has bilateral gynecomastia of unclear etiology and the mediport area right upper anterior chest looks fine. The port has been accessed already for labs today. Patient has bipedal edema. The right leg is much more than the left leg. There is no calf tenderness. There is no warmth from the calf or along the lower anterior thigh. Skin: Dry. Absolutely dry almost to the point of ichthyosis. Patient also has a rash all over his anterior abdomen, right inner thigh, right lower leg, both forearms and a little bit on his forehead. A lot of it looks almost like a fungal rash or tinea vesicular, more fungal. The rash is erythematous macular pruritic, very pruritic. But how much of the pruritus is from the dry skin and how much from the rash is very difficult to say in this gentleman. There is no herald patch. A lot of lesions are different sizes. Some are the size of a quarter, some are the size of a silver dollar and yet irregular. They are not clear nice round lesions. There is no clubbing surprisingly. No cyanosis. No rash on the palms. Labs from today reviewed with the patient. The CBC was back. White count 11.3, hemoglobin 12.5, platelets 124,000. Adequate ANC. Chemistry panel: Potassium 3.6 on the low side. GFR more than 60. Liver enzymes normal. Total protein slightly low with an albumin of 2.9 and total protein of 6.0. Nonfasting glucose was 124. IMPRESSION: 1. Mr. Caicedo is due for Cycle IV, day 1 of his Taxol and Ramucirumab today. Based on the labs, he is cleared for his treatment. The thrombocytopenia is not new and has occurred in the past from the chemo, sometimes requiring withholding of chemo also, according to Dr. Irving's notes. Today the platelets are low but not low enough to withhold treatment. At last count, the CA19-9 had come down to 225 from 6139 as of January 2018 so the treatment is definitely working as far as metastatic adenocarcinoma of the gastric cardia goes. 2. Rash: Patient says he had the rash come up when he was off the chemo and then on its own it went away for a month and then came back. So I agree with Dr. Irving that most likely, this is not treatment related rash. Of course both drugs, Taxol and Ramucirumab can give a rash but the timing does not seem right. So it could be one of his other medications causing the rash. But I am leaning towards two other etiologies. One is that the patient has severely dry skin and that in itself, makes the skin itchy and the second is that it looks almost fungal. We would love to put the patient on some Diflucan but there were like five major interactions with some of his other medications. Statins are notorious for causing interactions with Diflucan. Either way, we could not script the Diflucan today but we did give the patient some Lotrisone cream and asked him to try some Selsun Blue shampoo, leave it on for an hour before showering to pat himself dry after a shower, and we made a dermatology referral to see of they had any other suggestions. Patient has a rash in areas where he really cannot reach and he says he has one of those long padded rods that he can try or he will have to ask his daughter or son-in-law to put it on for him. We have not withheld any of his chronic medications leaving that up to the patient's primary physician. 3. Mild malnutrition with low albumin, low total protein. Patient not compliant with his protein supplements. We have encouraged him to do so. 4. Edema both lower extremities, right is more than the left. We have some concerns here. The low albumin could be contributing to the anemia of course. Also the patient has a history of chronic congestive heart failure which could be contributing to it and he is on Lasix, which is one of the reasons why his potassium runs low normal and the third possibility is patient is on Megace for appetite and Megace can cause thrombosis. Today, clinically the right leg did not look like it had deep venous thrombosis. But we have educated the patient if he gets any pain or warmth over the right calf, then to call us right away. Patient acknowledged understanding. Ordering a D-dimer would not have helped us today because with malignancy, the D-dimer can be elevated. So it would not have clarified much. Perhaps with next labs we can consider checking TSH and BNP or it can be done through Primary Physician's Office if patient keeps those appointments. PLAN: 1. Proceed with cycle four, day 1 chemotherapy today. Return day 8 and day 15 for treatment and return day 1 for a doctor and cycle five and labs as ordered through Dr. Kowalski. 2. Dermatology referral. 3. Management of the skin rash as above. The patient reminded that he can take Benadryl [id number] like he has been doing 25 mg every 8 hours but it can cause sleepiness, drowsiness and to be very cautious about any equipment or machinery or driving or anything after having taken Benadryl for 8 hours. 3. Lotrisone ointment scripted. 4. Flomax refilled as per patient's request so he would not have to go back to the urologist for it. 5. Patient to followup with primary care provider for his other medical issues, (encouraged). Electronically Signed by Oliver Cordero MD 07/16/2018 12:50 P DD: Oliver Cordero MD 07/14/2018 10:02 A DT: [email or web address] 07/15/2018 09:33 A CC: MD Demetrius Condon MD [facility]
[2018-07-20 09:55] LABS: HEMATOCRIT 35.5 % (42.0-52.0); HEMOGLOBIN 11.6 g/dl (13.5-17.5); LYMPH % 27.1 % (24.0-44.0); MEAN CORPUSCULAR HEMOGLOBIN 31.3 pg (27.0-33.0); MEAN CORPUSCULAR HGB CONC 32.7 g/dl (32.0-36.5); MEAN CORPUSCULAR VOLUME 95.8 fl (80.0-96.0); NEUTROPHILS # 4.6 10^3/uL (1.8-7.7); NEUTROPHILS % 67.1 % (36.0-66.0); RED BLOOD COUNT 3.71 10^6/uL (4.30-6.10); WHITE BLOOD COUNT 6.9 10^3/uL (4.0-10.0)
[2018-07-20 09:59] LABS: BLOOD UREA NITROGEN 11 MG/DL (6-20); CALCIUM LEVEL 9.5 MG/DL (8.5-10.2); CARBON DIOXIDE LEVEL 25 MEQ/L (23-31); CHLORIDE LEVEL 108 MMOL/L (98-107); CREATININE FOR GFR 0.72 MG/DL (0.90-1.30); GLUCOSE, FASTING 109 MG/DL (70-105); POTASSIUM SERUM 3.7 MMOL/L (3.5-5.1); SODIUM LEVEL 138 MMOL/L (136-145); TOTAL PROTEIN 5.9 GM/DL (6.4-8.3)
[2018-07-20 10:00] LABS: GLOMERULAR FILTRATION RATE > 60.0 (>42)
[2018-08-02 08:21] VITALS: BP 126/82
[2018-08-02 08:47] LABS: HEMATOCRIT 38.3 % (42.0-52.0); HEMOGLOBIN 12.9 g/dl (13.5-17.5); LYMPH % 34.5 % (24.0-44.0); MEAN CORPUSCULAR HEMOGLOBIN 31.5 pg (27.0-33.0); MEAN CORPUSCULAR HGB CONC 33.7 g/dl (32.0-36.5); MEAN CORPUSCULAR VOLUME 93.3 fl (80.0-96.0); NEUTROPHILS # 3.7 10^3/uL (1.8-7.7); NEUTROPHILS % 56.3 % (36.0-66.0); RED BLOOD COUNT 4.1 10^6/uL (4.30-6.10); WHITE BLOOD COUNT 6.5 10^3/uL (4.0-10.0)
[2018-08-02 09:08] LABS: BLOOD UREA NITROGEN 11 MG/DL (6-20); CALCIUM LEVEL 9.1 MG/DL (8.5-10.2); CARBON DIOXIDE LEVEL 22 MEQ/L (23-31); CHLORIDE LEVEL 111 MMOL/L (98-107); CREATININE FOR GFR 0.69 MG/DL (0.90-1.30); GLUCOSE, FASTING 92 MG/DL (70-105); POTASSIUM SERUM 3.1 MMOL/L (3.5-5.1); SODIUM LEVEL 141 MMOL/L (136-145); TOTAL PROTEIN 6.1 GM/DL (6.4-8.3)
[2018-08-02 09:09] LABS: GLOMERULAR FILTRATION RATE > 60.0 (>42)
--- NOTE | 2018-08-04 10:16 | MEDONC ---
MEDICAL ONCOLOGY FOLLOWUP DATE OF SERVICE: 08/02/2018 DIAGNOSIS: Stage IV, TXN2-3M1, HER2/desiree positive gastric adenocarcinoma with multifocal liver mets at presentation, mediastinal soft tissue and abdominal metastases diagnosed January 2017, currently on second line treatment with Ramucirumab/paclitaxel following major extended partial response to first-line palliative FOLFOX/trastuzumab. CURRENT THERAPY: Ramucirumab/paclitaxel q. 28 days on the following schedule: - Ramucirumab/paclitaxel day 1, day 15. Paclitaxel day 1, 8, 15. Day 1, cycle 1 03/09/2018. Complications have included thrombocytopenia, anorexia, weight loss. Major response by CA19-9 from 5825 in February to 225 in May. INTERVAL HISTORY: Arpit is here with a special request today asking if he can take a chemotherapy holiday. He is struggling with anorexia, not enjoying meals, developing some peripheral neuropathy symptoms. He has some skin rashes bothering him on his lower trunk, a dry scaling rash that waxes and wanes sometimes with a hives and erythema appearance. He has applied topical corticosteroids at different points with good results but still has the dry scaling. He has had a major weight loss over the last year. For example, October 2017 his weight was 96 kg, currently 86 kg. However, since starting current therapy he has gained approximately 10 kg. Overall, however his quality of life is suffering and he would like to take a holiday. This is reasonable, particularly given good response. Most recent imaging with chest, abdomen pelvis CT 05/03/2018 showed improvement in hepatic metastatic lesions and no intra-abdominal metastases. There are several smaller density areas in the liver ranging from 1.2-1.8 cm, but much smaller than February. Chest CT at the same time showed new small bilateral pleural effusions, a stable 10 mm pulmonary nodule in the right upper lobe, mild mediastinal lymphadenopathy regressed since September, stable since February, and CA19-9 as noted has significantly dropped on orders of magnitude from peak 6100 in January to 225 currently. We talked over how to handle visit intervals. I suggested a 4-week interval. This coincides with the need for port flush. We can track labs, symptoms, and of course, any earlier problems that arise Arpit should call and we will see him right away. Toward the end of the visit, Arpit noted he is having cough with occasional phlegm. On auscultation, there is no wheezing, no rales, but to be safe because he has a history of diastolic CHF I will order a PA and lateral chest x-ray. IMPRESSION: HER2/desiree positive stage IV gastric adenocarcinoma, multifocal liver metastases mediastinal and soft tissue abdominal metastases at diagnosis January 2017 currently responding well to second line treatment with Ramucirumab/paclitaxel, which was begun in February 2018 after a nearly 1 year clinical major remission on FOLFOX/Herceptin. Arpit has been currently treated with Ramucirumab and paclitaxel, there is considerable neuropathy that can come along with paclitaxel. He would like a treatment holiday, very reasonable. Last staging scans were in April showing disease response. He has a slight cough. Will get a PA and lateral chest x-ray today and barring any significant findings see him back in a month. PLAN: 1. Hold Ramucirumab/paclitaxel. As of as of today, Arpit has had three complete cycles and day 1 of cycle 4. If and when he resumes treatment, if he resumes this regimen, would simply consider him starting at cycle 4. 2. PA and lateral chest x-ray today. Will call Arpit with results. 3. Return in 4 weeks. Port flush, CBC, CMP, CA19-9, history and physical. Electronically Signed by Reanna Kowalski MD 08/04/2018 04:50 P DD: Reanna Kowalski MD 08/03/2018 03:09 P DT: deena 08/04/2018 09:43 A CC: Padmini Martinez MD
[2018-08-30 08:32] VITALS: BP 125/76
[2018-08-30 08:50] LABS: HEMATOCRIT 36.1 % (42.0-52.0); HEMOGLOBIN 11.9 g/dl (13.5-17.5); LYMPH % 29.3 % (24.0-44.0); MEAN CORPUSCULAR HEMOGLOBIN 30.4 pg (27.0-33.0); MEAN CORPUSCULAR VOLUME 92.1 fl (80.0-96.0); RED BLOOD COUNT 3.92 10^6/uL (4.30-6.10); WHITE BLOOD COUNT 6.4 10^3/uL (4.0-10.0)
[2018-08-30 09:06] LABS: ALBUMIN 2.7 GM/DL (3.5-5.2); BLOOD UREA NITROGEN 11 MG/DL (6-20); CALCIUM LEVEL 9.2 MG/DL (8.5-10.2); CARBON DIOXIDE LEVEL 24 MEQ/L (23-31); CHLORIDE LEVEL 107 MMOL/L (98-107); GLOMERULAR FILTRATION RATE > 60.0 (>42); GLUCOSE, FASTING 95 MG/DL (70-105); POTASSIUM SERUM 3.2 MMOL/L (3.5-5.1); SODIUM LEVEL 138 MMOL/L (136-145); TOTAL PROTEIN 5.8 GM/DL (6.4-8.3)
--- NOTE | 2018-08-31 18:59 | MEDONC ---
MEDICAL ONCOLOGY FOLLOWUP: DATE OF SERVICE: 08/30/2018 DIAGNOSIS: Stage IV, TXN2-3M1, HER2/desiree positive gastric adenocarcinoma with multifocal liver metastases at presentation, mediastinal soft tissue and abdominal metastases, diagnosed January 2017. Currently on second-line palliative treatment with ramucirumab/ paclitaxel following progression after major extended partial response to first-line palliative FOLFOX /trastuzumab. On treatment holiday for 1 month for quality of life. CURRENT THERAPY: Ramucirumab/paclitaxel every 28 days on the following schedule. Ramucircumab/paciltaxel day 1, day 15. Paclitaxel day 1, 8, 15. Day 1 cycle 1 03/09/2018; on treatment holiday as of end cycle three 08/02/2018. COMPLICATIONS: Have included thrombocytopenia, anorexia, weight loss. Major response by CA19-9 from 5825 in February 2018 to 225 in May 2018 INTERVAL HISTORY: Arpit returns accompanied by his daughter. He is feeling well. Appetite is improved. He is sleeping better at night and overall feeling good. He has a little more abdominal distension which I brought to his attention. He and has gained 3 kg. He denies any new shortness of breath, cough, orthopnea, leg swelling or cramping. REVIEW OF SYSTEMS: In addition to above pertinent positives and negatives persistent low but improving appetite, gas and alternating diarrhea and constipation. This is been going on for many months. No change in those symptoms. Remainder of 12 system review negative. PHYSICAL EXAMINATION: Weight 89.7 kg, temperature 98.3, blood pressure 125/76, heart rate 98, respiratory 24. Oxygen sat 98%. Patient is a pleasant, slightly overweight older gentleman in no distress. Respiratory: Clear lungs to auscultation bilaterally anterior and posteriorly. Cardiac: S1-S2, occasional ectopy. 2/6 systolic murmur loudest at the apex. Abdomen: Distended, soft, nontender, no hepatosplenomegaly or mass. Extremities: Trace pedal edema, edema bilaterally. Lymph nodes no submandibular, cervical, supraclavicular or axillary adenopathy bilaterally. LABS: Labs are pending. Most recent CA19-9 225 on 06/08/[address] Most recent abdomen pelvis CT in April. PLAN: After discussing timing of next restaging with Arpit he would like to have new restaging scan before his next treatment. He would like to continue off chemotherapy. He is enjoying a good quality of life with significant improvement in his sleep pattern and appetite, though still with a reduced appetite. He has gained approximately 6 pounds. 1. Return to clinic 4 weeks CBC, CMP, CA19-9 history and physical, port flush. 2. CT chest, abdomen pelvis with by mouth and IV contrast 1 week prior to visit. Electronically Signed by Reanna Kowalski MD 09/01/2018 04:40 P DD: Reanna Kowalski MD 08/30/2018 08:49 A DT: reta 08/31/2018 06:49 P CC: Padmini Martinez MD
[2018-09-28 10:21] LABS: HEMATOCRIT 37.4 % (42.0-52.0); HEMOGLOBIN 11.9 g/dl (13.5-17.5); LYMPH % 23.8 % (24.0-44.0); MEAN CORPUSCULAR HGB CONC 31.8 g/dl (32.0-36.5); MEAN CORPUSCULAR VOLUME 91.1 fl (80.0-96.0); NEUTROPHILS # 4.8 10^3/uL (1.8-7.7); NEUTROPHILS % 67.6 % (36.0-66.0); RED BLOOD COUNT 4.1 10^6/uL (4.30-6.10); WHITE BLOOD COUNT 7.1 10^3/uL (4.0-10.0)
[2018-09-28 10:47] VITALS: BP 131/80
[2018-09-28 10:52] LABS: ALBUMIN 2.6 GM/DL (3.5-5.2); BLOOD UREA NITROGEN 11 MG/DL (6-20); CALCIUM LEVEL 8.9 MG/DL (8.5-10.2); CARBON DIOXIDE LEVEL 22 MEQ/L (23-31); CHLORIDE LEVEL 106 MMOL/L (98-107); GLOMERULAR FILTRATION RATE > 60.0 (>42); GLUCOSE, FASTING 111 MG/DL (70-105); SODIUM LEVEL 136 MMOL/L (136-145); TOTAL PROTEIN 5.9 GM/DL (6.4-8.3)
[2018-09-28 10:57] LABS: POTASSIUM SERUM 2.9 MMOL/L (3.5-5.1)
--- NOTE | 2018-09-29 09:39 | MEDONC ---
MEDICAL ONCOLOGY FOLLOWUP DATE OF SERVICE: 09/28/2018 DIAGNOSIS: Stage IV, TXN2-3, M1, HER/desiree positive gastric adenocarcinoma with multifocal liver metastases at presentation, mediastinal soft tissue and abdominal metastases diagnosed January 2017. Currently on treatment holiday from second line palliative therapy. Now with evidence of disease progression involving mediastinal lymphadenopathy, slight increase in left pleural effusion, and increase in size of multiple liver nodules. TREATMENT HISTORY: FOLFOX / trastuzumab 02/2017 - 06/2017 Treatment holiday 07/2017 - 10/2017 FOLFOX / trastuzumab 10/2017 - 02/2018 (originally resumed for disease progression) Ramucirumab / paclitaxel 03/09/2018 - 08/02/2018 held for treatment holiday, major partial response 09/20/2018 CT chest, abdomen and pelvis with progression showing an increase in size of mediastinal lymphadenopathy (slight), increased left pleural effusion, stable right upper lobe 11 mm nodule, increase in the size of multiple liver nodules. INTERVAL HISTORY: Arpit is here for results of scans and clinical followup. He is gaining weight and acknowledges his appetite is improved. I asked about orthopnea symptoms, leg edema and so forth as he has known diastolic cardiac dysfunction but he denies these. He has no new cough. His weight also fluctuates. For example in June it was 84 kg, July, July again 98, July again 86, August 89 and today 96. 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 At his mik, he weighed 77 kg in April 2018. This progressive weight loss and anorexia prompted ultimately the treatment holiday started in July. His weight started to improve after Megace was started in late 2017. He takes this on and off. I reviewed the imaging results with Arpit and his daughter and explained this does represent progression of disease. At this point in Arpit's treatment history, the choices are third line palliative treatment versus observation palliation and hospice care. At the outset of his disease, Arpit had a fairly large volume of abdominal soft tissue deposits, liver metastases and chest adenopathy. Much of this has gotten under control with chemotherapy and he has had a remarkably long duration of remitted or control disease with mostly good quality of life. However, paclitaxel / ramucirumab did create quality of life problems. I recommended considering either no active treatment or single agent immunotherapy pembrolizumab. His tumor was tested for PD-L1 expression, it is positive for combined positive score of greater than one, consistent with PD-L1 expression. Notably there is no deficiency in mismatch repair protein. Arpit expresses interest in pembrolizumab. I reviewed risks, benefits, side effects and alternatives including but not limited to autoimmune side effects such as hypophysitis and adrenal insufficiency, thyroiditis, dermatitis, cardiac myositis, pneumonitis, transaminitis, hepatitis, nephritis. I briefly reviewed typical ways we managed these and survail for them. Arpit signed written informed consent for pembrolizumab. The dosing is 200 mg q. 21 days. IMPRESSION: PD-L1 expression positive (CPS greater than one), HER2/positive metastatic gastric adenocarcinoma, stage IV, now with progression after treatment holiday following second line paclitaxel/ramucirumab . ECOG performance status 1. PLAN: 1. Return to clinic to begin pembrolizumab 200 mg q. 21 days. 2. I will see Arpit for clinical exam every other treatment day; TSH, stat CMP, CBC will be collected on each treatment day. Will monitor thyroid, liver functions and any cardiac symptoms will be followed up with troponin and rapid evaluation with echocardiogram based on Arpit's history of diastolic CHF. TIME STATEMENT: 30-minutes spent [id number] with the patient, more than 50% involving counseling regarding progressive gastric cancer, third line treatment options versus palliation, obtaining written informed consent. Electronically Signed by Reanna Kowalski MD 09/29/2018 11:35 A DD: Reanna Kowalski MD 09/28/2018 05:29 P DT: [email or web address] 09/29/2018 09:20 A CC: Padmini Martinez MD
[2018-10-05 13:31] VITALS: BP 130/80
[2018-10-05 13:32] LABS: HEMATOCRIT 36.2 % (42.0-52.0); HEMOGLOBIN 11.7 g/dl (13.5-17.5); LYMPH % 20.2 % (24.0-44.0); MEAN CORPUSCULAR HGB CONC 32.3 g/dl (32.0-36.5); MEAN CORPUSCULAR VOLUME 89.8 fl (80.0-96.0); NEUTROPHILS # 5.6 10^3/uL (1.8-7.7); NEUTROPHILS % 72.3 % (36.0-66.0); RED BLOOD COUNT 4.03 10^6/uL (4.30-6.10); WHITE BLOOD COUNT 7.7 10^3/uL (4.0-10.0)
[2018-10-05 13:50] LABS: ALBUMIN 2.7 GM/DL (3.5-5.2); BLOOD UREA NITROGEN 6 MG/DL (6-20); CALCIUM LEVEL 8.8 MG/DL (8.5-10.2); CARBON DIOXIDE LEVEL 24 MEQ/L (23-31); CHLORIDE LEVEL 107 MMOL/L (98-107); CREATININE FOR GFR 0.69 MG/DL (0.90-1.30); GLUCOSE, FASTING 102 MG/DL (70-105); POTASSIUM SERUM 3.7 MMOL/L (3.5-5.1); SODIUM LEVEL 136 MMOL/L (135-145)
[2018-10-05 13:51] LABS: GLOMERULAR FILTRATION RATE > 60.0 (>42)
[2018-10-26 13:24] VITALS: BP 112/77
[2018-10-26 13:36] LABS: HEMATOCRIT 32.6 % (42.0-52.0); HEMOGLOBIN 10.6 g/dl (13.5-17.5); LYMPH % 18.7 % (24.0-44.0); MEAN CORPUSCULAR HEMOGLOBIN 28.9 pg (27.0-33.0); MEAN CORPUSCULAR HGB CONC 32.5 g/dl (32.0-36.5); MEAN CORPUSCULAR VOLUME 88.8 fl (80.0-96.0); NEUTROPHILS # 5.6 10^3/uL (1.8-7.7); NEUTROPHILS % 75.1 % (36.0-66.0); RED BLOOD COUNT 3.67 10^6/uL (4.30-6.10); WHITE BLOOD COUNT 7.5 10^3/uL (4.0-10.0)
[2018-10-26 13:47] LABS: ALBUMIN 2.5 GM/DL (3.5-5.2); BLOOD UREA NITROGEN 9 MG/DL (6-20); CALCIUM LEVEL 8.7 MG/DL (8.5-10.2); CARBON DIOXIDE LEVEL 28 MEQ/L (23-31); CHLORIDE LEVEL 106 MMOL/L (98-107); CREATININE FOR GFR 0.65 MG/DL (0.90-1.30); GLOMERULAR FILTRATION RATE > 60.0 (>42); GLUCOSE, FASTING 104 MG/DL (70-105); POTASSIUM SERUM 2.6 MMOL/L (3.5-5.1); SODIUM LEVEL 138 MMOL/L (135-145); TOTAL PROTEIN 5.6 GM/DL (6.4-8.3)
[2018-11-16 13:36] VITALS: BP 105/77
[2018-11-16 13:41] LABS: HEMATOCRIT 34.7 % (42.0-52.0); HEMOGLOBIN 11.4 g/dl (13.5-17.5); LYMPH % 14.6 % (24.0-44.0); MEAN CORPUSCULAR HEMOGLOBIN 29.1 pg (27.0-33.0); MEAN CORPUSCULAR HGB CONC 32.9 g/dl (32.0-36.5); MEAN CORPUSCULAR VOLUME 88.6 fl (80.0-96.0); NEUTROPHILS # 7.1 10^3/uL (1.8-7.7); NEUTROPHILS % 79.9 % (36.0-66.0); RED BLOOD COUNT 3.92 10^6/uL (4.30-6.10); WHITE BLOOD COUNT 8.9 10^3/uL (4.0-10.0)
[2018-11-16 13:54] LABS: ALBUMIN 2.5 GM/DL (3.5-5.2); BLOOD UREA NITROGEN 12 MG/DL (6-20); CALCIUM LEVEL 8.5 MG/DL (8.5-10.2); CARBON DIOXIDE LEVEL 24 MEQ/L (23-31); CHLORIDE LEVEL 107 MMOL/L (98-107); GLOMERULAR FILTRATION RATE > 60.0 (>42); GLUCOSE, FASTING 85 MG/DL (70-105); POTASSIUM SERUM 3.6 MMOL/L (3.5-5.1); SODIUM LEVEL 138 MMOL/L (135-145); TOTAL PROTEIN 5.7 GM/DL (6.4-8.3)
[2018-11-16 14:52] LABS: FREE T4 1.43 NG/DL (0.76-1.46); THYROID STIMULATING HORMONE 0.497 uIU/ML (0.358-3.740)
[~2018-11-17] VITALS: Ht 167.6 cm; Wt 100.4 kg
--- NOTE | 2018-11-17 13:14 | MEDONC ---
MEDICAL ONCOLOGY FOLLOWUP/TREATMENT VISIT: DATE OF SERVICE: 11/16/2018 DIAGNOSIS: Stage IV, TxN2-2, M1, HER2/desiree positive gastric adenocarcinoma with multifocal liver metastases at presentation in addition to mediastinal and abdominal metastases diagnosed January 2017. Currently on third line palliative treatment with single agent pembrolizumab, day 1, cycle one, 10/05/2018. Today will be day 1, cycle three. PRIOR TREATMENT: 1. FOLFOX/trastuzumab February 2017 - June 2017; treatment holiday until October 2017. 2. FOLFOX/trastuzumab October 2017 - February 2018. 3. Ramucirumab/paclitaxel February 2018 - July 2018. 4. Treatment holiday July 2018 - September 2018. INTERVAL HISTORY: Arpit's last CA19-9 had risen significantly from 12,000 to 21,000. Today, he reports generalized weakness when trying to get up from a chair, getting worse over the last month, but overall in place for 4 months. He is not on steroids. His abdomen has become more distended. His weight has changed only slightly increased. He has no specific orthopnea. Once he is up out of a chair, is able to get going. His performance status, however, is not about 3. He complains of pain involving his low back in a band around his right and left thigh, more on the right. He has oxycodone at home but has not taken any and wonders if it is okay to try it. He denies hemoptysis, cough, headache, visual disturbance. He has no new symmetric leg swelling. He has had occasional loose stool alternating with constipation. No blood in the stool. No vomiting. Appetite is intact, he says. The remainder of 12-system review is negative. PHYSICAL EXAMINATION: Weight 104.4 kg, temperature 98.6, blood pressure 105/77, heart rate 104, respiratory rate 20, oxygen saturation 99%. Patient's is an overweight man, somewhat ill-appearing. Gets on the exam table with some assistance. RESPIRATORY: Clear lungs to auscultation bilaterally, anteriorly, posteriorly. No wheezes or rales. CARDIAC: S1, S2 1/6 systolic murmur. ABDOMEN: Distended. Soft, nontender. No palpable hepatomegaly or mass. EXTREMITIES: Trace pedal edema. Symmetric bilaterally. LYMPH NODES: No palpable or submandibular cervical or supraclavicular adenopathy. No axillary adenopathy. LABS: WBC 8.9, hemoglobin 11, hematocrit 35, platelets 151, MCV 88, electrolytes normal. Liver function normal. Albumin 2.5, alkaline phosphatase 145, TSH pending. IMPRESSION: 1. Dwindling performance status, stage IV, HER2/desiree positive gastric adenocarcinoma progressed to HER2/desiree targeting-based therapies, now on third line immunotherapy, clinically unwell. Complains of pain, abdominally and low back. Suspicious overall for cancer progression given rise in CA19-9, which has been a reliable tumor marker for Arpit. 2. ECOG performance status 3. PLAN: 1. Stat CT chest, abdomen and pelvis with by mouth and IV contrast. 2. Return to clinic tomorrow afternoon. 3. We discussed palliative care and hospice care should disease progression be confirmed. Arpit has no healthcare proxy. I discussed establishing at least that. We deferred our discussion of advanced directives. Arpit's daughter was present throughout. Thanked me for the conversation. TIME STATEMENT: 30 minutes [id number] with the patient. More than 50% of involving counseling regarding gastric cancer progression, palliative treatment options, hospice care, signing a designated healthcare proxy, answering his questions about pain management and recommending that he resume as needed low dose oxycodone, which he has at home and answering all the patient's and his daughter's questions. Electronically Signed by Reanna Kowalski MD 11/19/2018 07:18 P DD: Reanna Kowalski MD 11/16/2018 02:37 P DT: [email or web address] 11/16/2018 02:48 P CC: Padmini Martinez MD
[~2018-11-17 15:03] MED LIST changes: +ACETAMINOPHEN 650 MG PO PO ONE; +FAMOTIDINE 20 MG IV IV ONE; +FOSAPREPITANT PERIPHERAL LINE 30 MIN INFUSION (PREMIX) IV ONE; +FOSAPREPITANT PERIPHERAL LINE 30 MIN INFUSION IV ONE; -GASTROGRAFIN SOLUTION 30ML (Q9963) As Ordered ONE; -ISOVUE-370 76% 100ML VIAL (Q9967) As Ordered ONE; +KCL 10MEQ/100ML SWI (KRUN) 100 ML IV ONE; +KCL 10MEQ/100ML SWI (KRUN) SINGLE DOSE IV ONE; +NS IV ONE; +PACLITAXEL IV ONE; +PALONOSETRON 250 MCG IV IV ONE; +PEGFILGRASTIM 6MG/0.6ML ONPRO KIT (J2505 PER 6MG) (FOR ONCOLOGY) SC ONE; +PEMBROLIZUMAB OVER 30 MINUTES IV ONE; +RAMUCIRUMAB IV ONE; +SODIUM CHLORIDE 0.9% INJ 10 ML SYR IV PRN; +diphenhydrAMINE 50 MG IV IV ONE; +diphenhydrAMINE 50 MG PO PO ONE
[2018-11-17 15:35] VITALS: BP 116/73
[2018-11-17 16:41] LABS: INR 1.13; PARTIAL THROMBOPLASTIN TIME 34.6 SECONDS (25.4-37.6); PROTHROMBIN TIME 14.7 SECONDS (12.1-14.4)
--- NOTE | 2018-11-18 11:19 | MEDONC ---
MEDICAL ONCOLOGY FOLLOWUP DATE OF SERVICE: 11/17/2018 DIAGNOSIS: Metastatic, HER2 positive gastric adenocarcinoma with multifocal liver metastases, now with evidence of systemic progression on third line palliative treatment with pembrolizumab. Declining ECOG performance status, currently three. INTERVAL HISTORY: Arpit is here after scans yesterday show obvious disease progression, including significant abdominal ascites. Abdomen and pelvis CT shows progression in the liver with a large amount of diffuse ascites, at least two new liver lesions, the largest current lesion now 4.7 up from 3.6 cm, with multiple other large lesions. Chest CT with multiple new bilateral pulmonary nodules consistent with metastatic disease, small pleural effusions, new epicardial adenopathy. I explained to Arpit his cancer is clearly progressing and recommended considering hospice care at this point. He has been on extended treatment holidays over the last year for side effects and does not have a performance status appropriate for continued treatment. We had discussed hospice on our last visit and he very quickly agrees this is the right step now. We talked about palliative paracentesis as he is somewhat uncomfortable given the amount of ascites. I warned the ascites could reoccur. Unless it is terribly bothersome on reoccurrence, it may be honeycutt to either observe or, alternatively, consider placement of a PleurX with recurrence. Meanwhile, will arrange palliative drainage. Arpit graciously thanked me for the care in our center. I answered his and his daughter's questions. We have now known each other for quite awhile and this was a difficult meeting. He understands hospice will take charge of his medications and pain management. Currently, he is trying oxycodone 5 mg up to t.i.d. and says this began to help. IMPRESSION: Metastatic, HER2 positive gastric cancer with liver metastases, extensive ascites, pulmonary metastases, now with major progression following third line treatment. Dwindling performance status. Abdominal pain. Low grade abdominal pain without evidence of obstruction. PLAN: 1. Therapeutic paracentesis. 2. Hospice referral. 3. Arpit's daughter will call me Thursday. If he needs more pain meds at that point, I can prescribe or if hospice is supervising at that point they can arrange for his pain medication. I am happy to serve as his hospice physician. TIME STATEMENT: 40 minutes [id number] with the patient, more than 50% counseling, answering the patient's questions and reviewing results. Electronically Signed by Reanna Kowalski MD 11/19/2018 07:18 P DD: Reanna Kowalski MD 11/17/2018 05:17 P DT: [email or web address] 11/18/2018 10:51 A CC: Padmini Martinez MD
--- NOTE | 2018-12-23 08:33 | MEDONC ---
MEDICAL ONCOLOGY FOLLOWUP / TREATMENT VISIT. DATE OF SERVICE: 10/26/2018 DIAGNOSIS: Stage IV, TXN2-3, M1, HER2 positive gastric adenocarcinoma with multifocal liver metastases at presentation, mediastinal soft tissue and abdominal metastases, diagnosed January 2017. Currently on third line treatment with single-agent pembrolizumab. Today is day one cycle two. Disease progression as of early 2018 with mediastinal lymphadenopathy and increase in multiple liver nodules. TREATMENT HISTORY: Please see 09/28/2018 note. CURRENT THERAPY: pembrolizumab 200 mg q. 3 weeks day one cycle one 10/05/2018. INTERVAL HISTORY: Arpit is here for cycle two. He says the first cycle went okay. He denies any new rash. He had some slight loose stool but no frequent diarrhea. No fever, chills, no unusual new lightheadedness, no shortness of breath, no new cough. REVIEW OF SYSTEMS: Pertinent positives and negatives noted above. The patient acknowledges decreased appetite overall, but no worsening since he started the pembrolizumab. He does have some leg edema. This is not new. He is trying his best to get up and move around and elevate his legs when seated. Remainder of 12 system review negative. PHYSICAL EXAMINATION: Weight 101 kg, temperature 98, blood pressure 112/77, heart rate 97, respiratory 20, O2 sat 98%. Patient is a short, mildly overweight but much reduced weight from baseline gentleman in no distress. Respiratory: Clear lungs throughout the lung patel. Cardiac: S1, S2, regular rate and rhythm. 1/6 systolic murmur. Abdomen: Soft, nontender. redundant skin folds. No hepatosplenomegaly appreciated on exam. Extremities: 1-2+ pedal edema ankles symmetric. Lymph nodes: No palpable submandibular, cervical, supraclavicular or axillary adenopathy bilaterally. LABORATORY DATA: WBC 7.5, hemoglobin 10.6, hematocrit 33, platelets 156. Sodium 138, potassium 2.6, BUN and creatinine normal. GFR normal. Liver functions normal. Albumin low 2.5. Alk phos 194, CA19-9 20,000. IMPRESSION: Metastatic HER2 positive gastric adenocarcinoma on third line treatment with salvage pembrolizumab due to progressive liver metastases and mediastinal lymphadenopathy. Stable. Today is day one cycle two pembrolizumab. Hypokalemia requiring repletion. PLAN: 1. Replete potassium today with 10 mEq of KCl. The patient was instructed also to continue taking his established oral prescription for potassium at home. 2. Cycle two pembrolizumab today. 3. Return to clinic 3 weeks for cycle three. In the interval, will do restaging chest, abdomen and pelvis CT. Electronically Signed by Reanna Kowalski MD 12/23/2018 11:20 A DD: Reanna Kowalski MD 12/22/2018 11:36 A DT: tresa 12/23/2018 08:22 A CC:
== END 2018-11-17 16:03 | disposition home or self-care (01) ==
LOC: M ONCM 15:03
PROVIDERS: ATTEND Internal Medicine Medical Oncology
DX: C16.9 Malignant neoplasm of stomach, unspecified (principal); C15.9 Malignant neoplasm of esophagus, unspecified; C78.7 Secondary malignant neoplasm of liver and intrahepatic bile duct; Z79.899 Other long term (current) drug therapy; I50.30 Unspecified diastolic (congestive) heart failure; R22.43 Localized swelling, mass and lump, lower limb, bilateral; D61.810 Antineoplastic chemotherapy induced pancytopenia
CPT/HCPCS: 36415; 36591; 80053; 81001; 85027; 85610; 85730; 86301; 87086; 96365; 96366; 96367; 96368; 96375; 96377; 96413; G0463; J1200; J1453; J1642; J2469; J2505; J9267; J9271; J9308